=== PATIENT | female | born 1945 | race Caucasian/White ===

== ENCOUNTER 2017-09-10 17:17 | Emergency (ER) | payer MEDICARE ==
[~2017-09-10] VITALS: Ht 152.4 cm; Wt 71.7 kg
[2017-09-10 21:24] LABS: BASOPHILS % 0.5 % (0.0-1.0); EOSINOPHILS # (AUTO) 0.1 (0.0-0.4); EOSINOPHILS % 1.4 % (0.0-6.0); HEMATOCRIT 44.1 % (34.2-44.1); HEMOGLOBIN 15.1 g/dL (12.0-16.0); LYMPHOCYTES # (AUTO) 1.2 (1.0-3.2); LYMPHOCYTES % 19.5 % (18.0-39.1); MEAN CORPUSCULAR HEMOGLOBIN 31.5 pg (28-32); MEAN CORPUSCULAR HGB CONC 34.2 g/dL (31-35); MEAN CORPUSCULAR VOLUME 92.1 fL (81-99); MONOCYTES # (AUTO) 0.6 (0.2-0.8); MONOCYTES % 9.9 % (4.4-11.3); NEUTROPHILS # (AUTO) 4.4 (2.1-6.9); NEUTROPHILS % 68.5 % (38.7-80.0); PLATELET COUNT 201 x10e3/uL (140-360); RED BLOOD COUNT 4.79 x10e6/uL (3.6-5.1); RED CELL DISTRIBUTION WIDTH 12.7 % (11.7-14.4)
[2017-09-10 21:29] LABS: INR 1.05; PARTIAL THROMBOPLASTIN TIME 27.5 seconds (23.8-35.5); PROTHROMBIN TIME 12.9 seconds (11.9-14.5)
[2017-09-10] MEDS ORDERED: ASPIRIN 81 MG CHEW TAB PO ONE (21:30)
[2017-09-10 21:39] LABS: ALANINE AMINOTRANSFERASE 15 IU/L (0-55); ALBUMIN 4.3 g/dL (3.5-5.0); ALBUMIN/GLOBULIN RATIO 1.2 (0.8-2.0); ALKALINE PHOSPHATASE 102 IU/L (40-150); ANION GAP 16.4 mmol/L (8-16); BLOOD UREA NITROGEN 16 mg/dL (7-26); BUN/CREATININE RATIO 19 (6-25); CALCIUM 9.2 mg/dL (8.4-10.2); CARBON DIOXIDE 21 mmol/L (22-29); CHLORIDE 108 mmol/L (98-107); CREATINE KINASE 124 IU/L (29-168); CREATININE, SERUM 0.84 mg/dL (0.57-1.11); EST GLOMERULAR FILTRATION RATE > 60 ML/MIN (60-); GLUCOSE 168 mg/dL (74-118); POTASSIUM 3.4 mmol/L (3.5-5.1); SODIUM 142 mmol/L (136-145)
[2017-09-10 21:44] LABS: BILIRUBIN,URINE NEGATIVE (NEGATIVE); CLARITY,URINE CLOUDY (CLEAR); COLOR,URINE YELLOW (YELLOW); KETONES,URINE NEGATIVE (NEGATIVE); LEUKOCYTE ESTERASE ,URINE 2+ (NEGATIVE); NITRITE,URINE NEGATIVE (NEGATIVE); PROTEIN,URINE DIPSTICK NEGATIVE (NEGATIVE); URINE UROBILINOGEN 0.2 mg/dL (0.2 - 1)
[2017-09-10 21:59] LABS: EPITHELIAL CELLS,URINE FEW /LPF; TRANSITIONAL EPI CELLS,URINE FEW
--- NOTE | 2017-09-10 22:00 | Diagnostic Imaging Report ---
EXAMINATION: CHEST SINGLE (NOT PORTABLE) INDICATION: Chest pain COMPARISON: None FINDINGS: TUBES and LINES: None. LUNGS: Lungs are well inflated. Lungs are clear. There is no evidence of pneumonia or pulmonary edema. PLEURA: No pleural effusion or pneumothorax. HEART AND MEDIASTINUM: The cardiomediastinal silhouette is unremarkable. There are atherosclerotic calcifications within the aorta. BONES AND SOFT TISSUES: No acute osseous lesion. Soft tissues are unremarkable. UPPER ABDOMEN: No free air under the diaphragm. IMPRESSION: No acute thoracic abnormality. Signed by: Dr. Arley Palmer M.D. on 09/10/2017 9:57 PM
[2017-09-10 22:01] LABS: RENAL EPITHELIAL CELLS,URINE FEW
[2017-09-10] MEDS ORDERED: NIFEDIPINE 10 MG CAP PO STA (22:28)
[2017-09-10] MEDS ORDERED: NIFEDIPINE 10 MG CAP ONE (22:34)
[2017-09-10] MEDS ORDERED: CEFTRIAXONE SOD 1 GM VIAL IV STA (23:15)
[2017-09-10] MEDS ORDERED: POTASSIUM CHLORIDE 20 MEQ TAB CR PO STA (23:15)
--- NOTE | 2017-09-10 23:57 | Diagnostic Imaging Report ---
EXAMINATION: Head CT without contrast. HISTORY:Numbness and tingling in right side of face and bilateral arms. COMPARISON:None. TECHNIQUE: Multidetector axial images were obtained from the foramen magnum to the vertex without contrast. The images were reconstructed using brain and bone algorithms. Thin section brain images were reformatted into coronal and sagittal planes. Intravenous contrast: None IMAGE QUALITY: Acceptable. FINDINGS: Skull/scalp: No abnormality. Parenchyma: Nonspecific bilateral frontoparietal patchy white matter hypodensity are likely related to small vessel ischemic changes. No acute hemorrhage, mass or acute major vascular territorial infarct. Arteries: No density suggestive of thrombosis. Dural sinuses: No abnormal density suggestive of thrombosis. Ventricles: No hydrocephalus or displacement. Extra-axial spaces: No abnormal density. Brain volume: Normal for age. Craniocervical junction: No mass, Chiari malformation, or basilar invagination. Sella: No mass. Paranasal/mastoid sinuses: Imaged portions unremarkable. IMPRESSION: No acute intracranial abnormality. Mild supratentorial white matter microvascular ischemic changes. Signed by: Dr. Mariam Linares M.D. on 09/10/2017 11:54 PM
[2017-09-11 01:07] VITALS: BP 152/82
== END 2017-09-11 01:14 | disposition home or self-care (01) ==
LOC: ER 17:17
DX: R20.2 Paresthesia of skin (principal); N30.91 Cystitis, unspecified with hematuria; I10 Essential (primary) hypertension; B19.20 Unspecified viral hepatitis C without hepatic coma
CPT/HCPCS: 36415; 70450; 71045; 80053; 81001; 82550; 82553; 83880; 84484; 85025; 85610; 85730; 87086; 93005; 96374; 99284; J0696

== ENCOUNTER 2019-01-23 14:46 | Emergency (ER) | payer MEDICARE, OTHER ==
[~2019-01-23] VITALS: Ht 152.4 cm; Wt 71.7 kg
--- OUTSIDE RECORDS SUMMARY | 2019-01-23 14:49 | XMS REPORT ---
Author [facility] Address Unknown Phone Unavailable Care Team Providers Care Strip Tank Tender Name Role Phone Rosalba SOOD Unavailable Unavailable Problems This patient has no known problems. Allergies, Adverse Reactions, Alerts This patient has no known allergies or adverse reactions. Medications This patient has no known medications. Results Test Description Test Time Test Comments Text Results Atomic Results Result Comments CT BRAIN WO [place] [address] Patient Name: KIM LUEVANO MR #: [id number] : 1945 Age/Sex: 71/F Req #: [id number] Adm Physician: Ordered by: DOROTA SOOD MD Report #: [id number] Location: ER Room/Bed: Procedure: [id number] CT/CT BRAIN WO Exam Date: 09/10/17 Exam Time: 2327 REPORT STATUS: Signed EXAMINATION: Head CT without contrast. HISTORY:Numbness and tingling in right side of face and bilateral arms. COMPARISON:None. TECHNIQUE: Multidetector axial images were obtained from the foramen magnum to the vertex without contrast. The images were reconstructed using brain and bone algorithms. Thin section brain images were reformatted into coronal and sagittal planes. Intravenous contrast: None IMAGE QUALITY: Acceptable. FINDINGS: Skull/scalp: No abnormality. Parenchyma: Nonspecific bilateral frontoparietal patchy white matter hypodensity are likely related to small vessel ischemic changes. No acute hemorrhage, mass or acute major vascular territorial infarct. Arteries: No density suggestive of thrombosis. Dural sinuses: No abnormal density suggestive of thrombosis. Ventricles: No hydrocephalus or displacement. Extra- axial spaces: No abnormal density. Brain volume: Normal for age. Craniocervical junction: No mass, Chiari malformation, or basilar invagination. Sella: No mass. Paranasal/mastoid sinuses: Imaged portions unremarkable. IMPRESSION: No acute intracranial abnormality. Mild supratentorial white matter microvascular ischemic changes. Signed by: Dr. Mariam Linares M.D. on 09/10/2017 11:54 PM Dictated By: MRAIAM LINARES MD 53 Transcribed By: LEILANI on 09/10/172353 COPY TO: DOROTA SOOD MD CHEST SINGLE (NOT PORTABLE) [place] [address] Patient Name: KIM LUEVANO MR #: [id number] : 1945 Age/Sex: 71/F Req #: [id number] Adm Physician: Ordered by: DOROTA SOOD MD Report #: [id number] Location: ER Room/Bed: Procedure: [id number] DX/CHEST SINGLE (NOT PORTABLE) Exam Date: 09/10/17 Exam Time: 2119 REPORT STATUS: Signed EXAMINATION: CHEST SINGLE (NOT PORTABLE) INDICATION: Chest pain COMPARISON: None FINDINGS: TUBES and LINES: None. LUNGS: Lungs are well inflated. Lungs are clear. There is no evidence of pneumonia or pulmonary edema. PLEURA: No pleural effusion or pneumothorax. HEART AND MEDIASTINUM: The cardiomediastinal silhouette is unremarkable. There are atherosclerotic calcifications within the aorta. BONES AND SOFT TISSUES: No acute osseous lesion. Soft tissues are unremarkable. UPPER ABDOMEN: No free air under the diaphragm. IMPRESSION: No acute thoracic abnormality. Signed by: Dr. Arley Palmer M.D. on 09/10/2017 9:57 PM Dictated By: ARLEY BRADFORD MD 56 Transcribed By: LEILANI on 09/10/172156 COPY TO: DOROTA SOOD MD
[2019-01-23] MEDS ORDERED: CLINDAMYCIN PHOS 900MG/ 50ML 50 ML IV ONE (16:30)
== END 2019-01-23 17:56 | disposition home or self-care (01) ==
LOC: ER 14:46
DX: L03.114 Cellulitis of left upper limb (principal); M70.22 Olecranon bursitis, left elbow; I10 Essential (primary) hypertension; Z86.73 Personal history of transient ischemic attack (TIA), and cerebral infarction without residual deficits
CPT/HCPCS: 87071; 87186; 87205; 99283

== ENCOUNTER 2019-12-29 14:04 | Inpatient (IN) | payer MEDICARE ==
[~2019-12-29] VITALS: Ht 152.4 cm; Wt 62.1 kg
--- OUTSIDE RECORDS SUMMARY | 2019-12-29 14:06 | XMS REPORT | Continuity of Care Document ---
Author Author [facility] Organization [facility] Address [address] [place] [address] Phone Unavailable Care Team Providers Care Bilingual Case Manager Name Role Phone FILEMON CHEN MD PCP Rosalba SOOD Attphys Unavailable Payers Payer Name Policy Type Policy Number Effective Date Expiration Date Shantel Philippe o [id number] [facility] [employer] Medicare Advantage [id number] [facility] Problems This patient has no known problems. Allergies, Adverse Reactions, Alerts Allergy Name Allergy Type Status Severity Reaction(s) Onset Date Inacti ve Date Treating Clinician Comments Source Diphenhydramine Allergy to Substance Active 2017-09-10 00:0 0:00 [facility] Latex Allergy to Substance Active 2017-09-10 00:00:00 [facility] Medications This patient has no known medications. Procedures This patient has no known procedures. Encounters Start Date/Time End Date/Time [facility] ID Source 2019-01-23 14:46:00 2019-01-23 17:56:00 Departed Emergency Room [facility] [id number] [facility] 2017-09-10 17:17:00 2017-09-11 01:14:00 Departed Emergency Room ER DOROTA SOOD [facility] [id number] [facility] Results Test Description Test Time Test Comments Results Result Comments Source Urine WBC 2017-09-10 22:03:00 Test Item Urine WBC (test code = 5821-4) 11-20 0-5 H [facility] [id number] 22:03:00* Test Item Value Reference Range Interpretation Comments Urine RBC (test code = 23462-4) 6-10 0-5 H [facility] Iwhjgmpv7059-01-23 22:03:00* Test Item Value Reference Range Interpretation Comments Urine Bacteria (test code = 38569-0) NONE NONE [facility] Epithelial [id number] 22:03:00 * Test Item Value Reference Range Interpretation Comments Urine Epithelial Cells (test code = 44513-4) FEW NONE [facility] Transitional Epithelial Cells 2017-09-10 22:03:00* Test Item Value Reference Range Interpretation Comments Urine Transitional Epithelial Cells (test code = 8249-5) FEW NONE H [facility] Renal Epithelial [id number] 22:03:00* Test Item Value Reference Range Interpretation Comments Urine Renal Epithelial Cells (test code = 85870-3) FEW NON E H [facility] CenterB-Type Natriuretic Yzmzase3489-00-25 21:47:00* Test Item Value Reference Range Interpretation Comments B-Type Natriuretic Peptide (test code = 25278-2) 11.6 0-100 [facility] Kinase [id number] 21:47:00* Test Item Value Reference Range Interpretation Comments Creatine Kinase MB (test code = 53564-4) 2.00 0-5.0 [facility]Troponin [id number] 21:47:00* Test Item Value Reference Range Interpretation Comments Troponin I (test code = VYH3141) -0.001 0-0.300 [facility] Csufr5211-82-34 21:45:00* Test Item Value Reference Range Interpretation Comments Urine Color (test code = 5778-6) YELLOW YELLOW [facility] Gkfepke2272-10-71 21:45:00* Test Item Value Reference Range Interpretation Comments Urine Clarity (test code = 17799-7) CLOUDY CLEAR H [facility] Center[facility] Specific Nsnjeqj7436-64-17 21:45:00 * Test Item Value Reference Range Interpretation Comments Urine Specific Hope (test code = 5811-5) 1.025 1.010-1.02 5 [facility] [id number] 21:45:00* Test Item Value Reference Range Interpretation Comments Urine pH (test code = 93107-2) 5 5-7 [facility] Leukocyte Xcippqmc2677-16-78 21:45:00* Test Item Value Reference Range Interpretation Comments Urine Leukocyte Esterase (test code = 5799-2) 2+ NEGATIVE H [facility] Center[facility] Xndnmph9717-46-29 21:45:00* Test Item Value Reference Range Interpretation Comments Urine Nitrite (test code = 66451-6) NEGATIVE NEGATIVE [facility] Pxszscu5572-28-39 21:45:00* Test Item Value Reference Range Interpretation Comments Urine Protein (test code = 5804-0) NEGATIVE NEGATIVE [facility] Glucose (UA)2017-09-10 21:45:00* Test Item Value Reference Range Interpretation Comments Urine Glucose (UA) (test code = 2349-9) TRACE NEGATIVE H [facility] Ogbmast0069-73-68 21:45:00* Test Item Value Reference Range Interpretation Comments Urine Ketones (test code = 36539-6) NEGATIVE NEGATIVE [facility] Quamqdienwlu9190-73-75 21:45:00* Test Item Value Reference Range Interpretation Comments Urine Urobilinogen (test code = 64556-1) 0.2 0.2-1 [facility] Qeomrzqcz7367-50-72 21:45:00* Test Item Value Reference Range Interpretation Comments Urine Bilirubin (test code = 1978-6) NEGATIVE NEGATIVE [facility] Xqnmv3503-64-72 21:45:00* Test Item Value Reference Range Interpretation Comments Urine Blood (test code = 15360-2) TRACE NEGATIVE [facility] Lssve8055-29-67 21:40:00* Test Item Value Reference Range Interpretation Comments Sodium Level (test code = 2951-2) 142 136-145 [facility] CenterPotassium Vajoc1076-52-38 21:40:00* Test Item Value Reference Range Interpretation Comments Potassium Level (test code = 2823-3) 3.4 3.5-5.1 L [facility] CenterChloride Xphew0890-51-53 21:40:00* Test Item Value Reference Range Interpretation Comments Chloride Level (test code = 2075-0) 108 98-107 H [facility] CenterCarbon Dioxide Pozxh3378-94-80 21:40:00* Test Item Value Reference Range Interpretation Comments Carbon Dioxide Level (test code = 2028-9) 21 22-29 L [facility] CenterAnion Yfk6825-91-63 21:40:00* Test Item Value Reference Range Interpretation Comments Anion Gap (test code = 71441-3) 16.4 8-16 H [facility] CenterBlood Urea Upsdgscd7016-42-63 21:40:00* Test Item Value Reference Range Interpretation Comments Blood Urea Nitrogen (test code = 3094-0) 16 7-26 [facility] CenterCreatinine2018-02-21 21:40:00* Test Item Value Reference Range Interpretation Comments Creatinine (test code = 2160-0) 0.84 0.57-1.11 [facility] CenterBUN/Creatinine Fiygw4851-07-09 21:40:00* Test Item Value Reference Range Interpretation Comments BUN/Creatinine Ratio (test code = 3097-3) 19 6-25 [facility] CenterEstimat Glomerular Filtration Rate 2017-09-10 21:40:00* Test Item Value Reference Range Interpretation Comments Estimat Glomerular Filtration Rate (test code = 27869-7) 60- >60 Ranges were taken from the National Kidney Disease Education Program and the [facility] Foundation literature.Reference ranges:60 or greater: Kmlegc08-51 ( for 3 consecutive months): Chronic kidney disease 15 or less: Kidney failureParis [facility] Medical CenterGlucose Lgqfm8062-95-13 21:40:00* Test Item Value Reference Range Interpretation Comments Glucose Level (test code = LIK5167) 168 74-118 H [facility] CenterCalcium Mqqud7408-21-41 21:40:00* Test Item Value Reference Range Interpretation Comments Calcium Level (test code = 55501-5) 9.2 8.4-10.2 [facility] CenterTotal Dxjfvjxzf7914-93-97 21:40:00* Test Item Value Reference Range Interpretation Comments Total Bilirubin (test code = 1975-2) 0.4 0.2-1.2 [facility] CenterAspartate Amino Transf (AST/SGOT) 2017-09-10 21:40:00* Test Item Value Reference Range Interpretation Comments Aspartate Amino Transf (AST/SGOT) (test code = Aspartate Amino Transf (AST/SGOT)) 23 5-34 [facility] CenterAlanine Aminotransferase (ALT/SGPT) 2017-09-10 21:40:00* Test Item Value Reference Range Interpretation Comments Alanine Aminotransferase (ALT/SGPT) (test code = 1742-6) 15 0-55 [facility] CenterTotal Qxmigzo1031-30-78 21:40:00* Test Item Value Reference Range Interpretation Comments Total Protein (test code = 2885-2) 8.0 6.5-8.1 [facility] CenterAlbumin2018-02-21 21:40:00* Test Item Value Reference Range Interpretation Comments Albumin (test code = 1751-7) 4.3 3.5-5.0 [facility] CenterGlobulin2018-02-21 21:40:00* Test Item Value Reference Range Interpretation Comments Globulin (test code = 82041-9) 3.7 2.3-3.5 H [facility] CenterAlbumin/Globulin Khnmv1251-33-22 21:40:00 * Test Item Value Reference Range Interpretation Comments Albumin/Globulin Ratio (test code = 1759-0) 1.2 0.8-2.0 [facility] CenterAlkaline Qhfzvyjzymj1588-03-16 21:40:00* Test Item Value Reference Range Interpretation Comments Alkaline Phosphatase (test code = 6768-6) 102 40-150 [facility] CenterCreatine Yhgsud3266-42-87 21:40:00* Test Item Value Reference Range Interpretation Comments Creatine Kinase (test code = 2157-6) 124 29-168 [facility] CenterProthrombin Yqca0614-60-50 21:35:00* Test Item Value Reference Range Interpretation Comments Prothrombin Time (test code = 5902-2) 12.9 11.9-14.5 [facility] CenterProthromb Time International Ratio 2017-09-10 21:35:00* Test Item Value Reference Range Interpretation Comments Prothromb Time International Ratio (test code = 6301-6) 1.05 Oral Anticoagulant Therapy INR Values:1. Low Intensity Therapy 1.5 - 2.02 . Moderate Intensity Therapy 2.0 - 3.03. High Intensity Therapy(1) 2.5 - 3. 54. High Intensity Therapy(2) 3.0 - 4.05. Panic Value INR > 5.0 [facility] CenterActivated Partial Thromboplast Time 2017-09-10 21:35:00* Test Item Value Reference Range Interpretation Comments Activated Partial Thromboplast Time (test code = 46763-2) 27.5 23.8-35.5 [facility] CenterWhite Blood Dfjpk0642-29-33 21:25:00* Test Item Value Reference Range Interpretation Comments White Blood Count (test code = 6690-2) 6.35 4.8-10.8 [facility] CenterRed Blood Abibs9452-18-84 21:25:00* Test Item Value Reference Range Interpretation Comments Red Blood Count (test code = 789-8) 4.79 3.6-5.1 [facility] CenterHemoglobin2018-02-21 21:25:00* Test Item Value Reference Range Interpretation Comments Hemoglobin (test code = 85701-1) 15.1 12.0-16.0 [facility] CenterHematocrit2018-02-21 21:25:00* Test Item Value Reference Range Interpretation Comments Hematocrit (test code = 4544-3) 44.1 34.2-44.1 [facility] CenterMean Corpuscular Ztkdqx4438-03-45 21:25:00* Test Item Value Reference Range Interpretation Comments Mean Corpuscular Volume (test code = 787-2) 92.1 81-99 [facility] CenterMean Corpuscular Cgiyfjmjtf4743-58-37 21:25:00* Test Item Value Reference Range Interpretation Comments Mean Corpuscular Hemoglobin (test code = 785-6) 31.5 28-32 [facility] CenterMean Corpuscular Hemoglobin Concent 2017-09-10 21:25:00* Test Item Value Reference Range Interpretation Comments Mean Corpuscular Hemoglobin Concent (test code = 786-4) 34.2 31-35 [facility] CenterRed Cell Distribution Mclmn6343-29-30 21:25:00* Test Item Value Reference Range Interpretation Comments Red Cell Distribution Width (test code = 65228-3) 12.7 11.7 -14.4 [facility] CenterPlatelet Tnttm1990-22-35 21:25:00* Test Item Value Reference Range Interpretation Comments Platelet Count (test code = 777-3) 201 140-360 [facility] CenterNeutrophils (%) (Auto)2017-09-10 21:25:00 * Test Item Value Reference Range Interpretation Comments Neutrophils (%) (Auto) (test code = 53104-1) 68.5 38.7-80.0 [facility] CenterLymphocytes (%) (Auto)2017-09-10 21:25:00 * Test Item Value Reference Range Interpretation Comments Lymphocytes (%) (Auto) (test code = 736-9) 19.5 18.0-39.1 [facility] CenterMonocytes (%) (Auto)2017-09-10 21:25:00* Test Item Value Reference Range Interpretation Comments Monocytes (%) (Auto) (test code = 5905-5) 9.9 4.4-11.3 [facility] CenterEosinophils (%) (Auto)2017-09-10 21:25:00 * Test Item Value Reference Range Interpretation Comments Eosinophils (%) (Auto) (test code = 713-8) 1.4 0.0-6.0 [facility] CenterBasophils (%) (Auto)2017-09-10 21:25:00* Test Item Value Reference Range Interpretation Comments Basophils (%) (Auto) (test code = 706-2) 0.5 0.0-1.0 [facility] CenterIM GRANULOCYTES %2017-09-10 21:25:00* Test Item Value Reference Range Interpretation Comments IM GRANULOCYTES % (test code = IM GRANULOCYTES %) 0.2 0.0- 1.0 [facility] CenterNeutrophils # (Auto)2017-09-10 21:25:00* Test Item Value Reference Range Interpretation Comments Neutrophils # (Auto) (test code = 751-8) 4.4 2.1-6.9 [facility] CenterLymphocytes # (Auto)2017-09-10 21:25:00* Test Item Value Reference Range Interpretation Comments Lymphocytes # (Auto) (test code = 53483-3) 1.2 1.0-3.2 [facility] CenterMonocytes # (Auto)2017-09-10 21:25:00* Test Item Value Reference Range Interpretation Comments Monocytes # (Auto) (test code = 742-7) 0.6 0.2-0.8 [facility] CenterEosinophils # (Auto)2017-09-10 21:25:00* Test Item Value Reference Range Interpretation Comments Eosinophils # (Auto) (test code = 711-2) 0.1 0.0-0.4 [facility] CenterBasophils # (Auto)2017-09-10 21:25:00* Test Item Value Reference Range Interpretation Comments Basophils # (Auto) (test code = 704-7) 0.0 0.0-0.1 [facility] CenterAbsolute Immature Granulocyte (auto 2017-09-10 21:25:00* Test Item Value Reference Range Interpretation Comments Absolute Immature Granulocyte (auto (ramses t code = Absolute Immature Granulocyte (auto) 0.01 0-0.1 [facility] CenterCT BRAIN WO [place] [address] Patient Name: KIM LUEVANO MR #: [id number] : 1945 Age/Sex: 71/F Req #: [id number] Adm Physician: Ordered by: DOROTA SOOD MD Report #: [id number] Location: ER Room/Bed: Procedure: [id number] CT/CT BRAIN WO Exam Date: 08/22 08/07 Exam Time: 8 REPORT STATUS: Signed E XAMINATION: Head CT without contrast. HISTORY:Numbness and tingling in right side of face and bilateral arms. COMPARISON:None. TECHNIQUE: Multi detector axial images were obtained from the foramen magnum to the vertex with out contrast. The images were reconstructed using brain and bone algorithms. Thin section brain images were reformatted into coronal and sagittal planes. Intravenous contrast: None IMAGE QUALITY: Acceptable. FINDINGS: Skull/scalp: No abnormality. Parenchyma: Nonspecific bilateral fronto parietal patchy white matter hypodensity are likely related to small vessel is chemic changes. No acute hemorrhage, mass or acute major vascular territorial infarct. Arteries: No density suggestive of thrombosis. Dural sin uses: No abnormal density suggestive of thrombosis. Ventricles: No hydroc ephalus or displacement. Extra-axial spaces: No abnormal density. Brain volume: Normal for age. Craniocervical junction: No mass, Chiari mal formation, or basilar invagination. Sella: No mass. Paranasal/mas toid sinuses: Imaged portions unremarkable. IMPRESSION: No acute intracra nial abnormality. Mild supratentorial white matter microvascular ischemic c hanges. Signed by: Dr. Mariam Linares M.D. on 09/10/2017 11:54 PM D ictated By: MARIAM LINARES MD 53 Transcribed By: LEILANI on 09/10/172353 COPY TO: Yann SOOD MD CHEST SINGLE (NOT PORTABLE) [place] [address] Patient Name: KIM LUEVANO MR #: [id number] : 1945 Age/Sex: 71/F Req #: [id number] Adm Physician: Ordered by: DOROTA SOOD MD Report #: [id number] Location: ER Room/Bed: Procedure: [id number] DX/CHEST SINGLE (NOT PORTABLE) Exam Date: 09/10/17 Exam Time: 2119 STA TUS: Signed EXAMINATION: CHEST SINGLE (NOT PORTABLE) INDICATION: Chest pain COMPARISON: None FINDINGS: TUBES and LINES: None. LUNGS: Lungs are well inflated. Lungs are clear. There is no e vidence of pneumonia or pulmonary edema. PLEURA: No pleural effusion or pneumothorax. HEART AND MEDIASTINUM: The cardiomediastinal silhouette is u nremarkable. There are atherosclerotic calcifications within the aorta. B ONES AND SOFT TISSUES: No acute osseous lesion. Soft tissues are unremarkabl e. UPPER ABDOMEN: No free air under the diaphragm. IMPRESSION: No acute thoracic abnormality. Signed by: Dr. Arley Palmer M.D. on 2017 9:57 PM Dictated By: ARLEY BRADFORD MD 56 Transcribed By: LEILANI on 2156 COPY TO: DOROTA SOOD MD
[2019-12-29] MEDS ORDERED: SODIUM CHLORIDE 0.9% 1000ML 1,000 ML IV STA ×2 (14:28→17:41)
[2019-12-29 14:54] LABS: BASOPHILS % 0.1 % (0.0-1.0); HEMATOCRIT 43.1 % (34.2-44.1); HEMOGLOBIN 14.8 g/dL (12.0-16.0); LYMPHOCYTES # (AUTO) 0.4 (1.0-3.2); LYMPHOCYTES % 5.5 % (18.0-39.1); MEAN CORPUSCULAR HEMOGLOBIN 30.5 pg (28-32); MEAN CORPUSCULAR HGB CONC 34.3 g/dL (31-35); MEAN CORPUSCULAR VOLUME 88.7 fL (81-99); MONOCYTES # (AUTO) 0.4 (0.2-0.8); MONOCYTES % 5.3 % (4.4-11.3); NEUTROPHILS # (AUTO) 7.1 (2.1-6.9); NEUTROPHILS % 88.7 % (38.7-80.0); PLATELET COUNT 156 x10e3/uL (140-360); RED BLOOD COUNT 4.86 x10e6/uL (3.6-5.1); RED CELL DISTRIBUTION WIDTH 12.1 % (11.7-14.4)
[2019-12-29 15:03] LABS: INR 0.92; PROTHROMBIN TIME 12.9 seconds (11.9-14.5)
[2019-12-29 15:12] LABS: ALANINE AMINOTRANSFERASE 31 IU/L (0-55); ALBUMIN 3.6 g/dL (3.5-5.0); ALBUMIN/GLOBULIN RATIO 0.8 (0.8-2.0); ALKALINE PHOSPHATASE 62 IU/L (40-150); ANION GAP 16.5 mmol/L (8-16); BLOOD UREA NITROGEN 18 mg/dL (7-26); BUN/CREATININE RATIO 22 (6-25); CALCIUM 10.2 mg/dL (8.4-10.2); CARBON DIOXIDE 21 mmol/L (22-29); CHLORIDE 102 mmol/L (98-107); CREATINE KINASE 232 IU/L (29-168); CREATININE, SERUM 0.83 mg/dL (0.57-1.11); EST GLOMERULAR FILTRATION RATE > 60 ML/MIN (60-); GLUCOSE 116 mg/dL (74-118); MAGNESIUM 1.9 MG/DL (1.3-2.1); POTASSIUM 3.5 mmol/L (3.5-5.1); SODIUM 136 mmol/L (136-145)
[2019-12-29 15:37] LABS: CLARITY,URINE SL CLOUDY (CLEAR); COLOR,URINE YELLOW (YELLOW); LEUKOCYTE ESTERASE ,URINE MODERATE (NEGATIVE); NITRITE,URINE POSITIVE (NEGATIVE); PROTEIN,URINE DIPSTICK 1+ (NEGATIVE)
[2019-12-29 15:38] LABS: BILIRUBIN,URINE NEGATIVE (NEGATIVE); KETONES,URINE TRACE (NEGATIVE); URINE UROBILINOGEN 0.2 mg/dL (0.2 - 1)
[2019-12-29 15:43] LABS: B-TYPE NATRIURETIC PEPTIDE2 24.5 pg/mL (0-100)
[2019-12-29 15:45] LABS: BACTERIA,URINE MANY /HPF; WBC,URINE (MAN) >50 /HPF (0-5)
[2019-12-29] MEDS ORDERED: CEFTRIAXONE SOD 1 GM/NS 50 ML 50 ML IV ONE (16:15)
--- NOTE | 2019-12-29 16:19 | Emergency Department Note ---
History of Present Illnes History of Present Illness Chief Complaint: General Medicine Complaints History of Present Illness This is a 74 year old female sent from pcp office c/o feverright side back pain cough hypoxia diarrhea for several days Chief Complaint Comment SENT OVER FROM DR CHEN'S OFFICE FOR EVAL OF FEVER, RIGHT SIDED BACK PAIN, COUGH, HYPOXEMIA, DIARRHEA, NO PO INTAKE, SEVERE DEPRESSION Historian: Patient, Family Member Arrival Mode: Car Onset (how long ago): day(s) (several) Radiation: Reports back Severity: moderate Onset quality: gradual Duration (how long): day(s) (several days) Timing of current episode: constant Progression: worsening Context: Denies recent illness, Denies recent surgery, Denies recent immobilization, Denies recent travel, Denies trauma/injury, Denies new medications, Denies hx of DVT/PE, Denies non-compliance w/ medications, Denies other Relieving factors: none Exacerbating factors: none Associated symptoms: Reports cough, Reports fever/chills, Reports malaise, Reports weakness, Reports other (diarhea) Treatments prior to arrival: none Past Medical/Family History Physician Review I have reviewed the patient's past medical and family history. Any updates have been documented here. Past Medical History Recent Fever: No Clinical Suspicion of Infectio: Yes New/Unexplained Change in Ment: No Past Medical History: Hypertension, CVA, Depression, Hyperlipedemia Other Medical History: prediabetes fibroadenoma of rt breast OA Cholesterol cataract Other Surgery: Rt breast LUMP Social History Smoking Cessation: Never Smoker Counseling Performed: No Alcohol Use: None Any Illegal Drug Use: No TB Exposure/Symptoms: No Physically hurt or threatened: No Other Last Tetanus: Unknown Any Pre-Existing Lines (PICC,: No Is patient up to date on immun: Yes Last Flu: 2019 Last Pneumovax: 2019 Review of Systems Review of Systems Constitutional: Reports chills, Reports fever, Reports malaise, Reports weakness, Reports other (poor appitite) EENTM: Reports no symptoms Cardiovascular: Reports no symptoms Respiratory: Reports cough Gastrointestinal: Reports diarrhea Genitourinary: Reports no symptoms Musculoskeletal: Reports back pain (left side back pain ) Integumentary: Reports no symptoms Neurological: Reports no symptoms Psychological: Reports no symptoms Endocrine: Reports no symptoms Hematological/Lymphatic: Reports no symptoms Review of other systems All other systems reviewed and negative. Physical Exam Related Data Allergies: Coded Allergies: diphenhydramine (Verified Allergy, Unknown, 09/10/17) latex (Verified Allergy, Unknown, 09/10/17) Triage Vital Signs Vital Signs Date Time Temp Pulse Resp B/P (MAP) Pulse Ox O2 Delivery O2 Flow Rate FiO2 12/29/19 14:21 97.5 104 22 121/61 92 Vital signs reviewed: Yes Physical Exam CONSTITUTIONAL Constitutional: Reports ill appearing, Reports other (poor appitite) HENT HENT: Reports normocephalic, Reports atraumatic, Reports oropharynx clear/moist, Reports nose normal HENT L/R: Reports left ext ear normal, Reports right ext ear normal EYES Eyes: Reports PERRL, Reports conjunctivae normal NECK Neck: Reports ROM normal PULMONARY Pulmonary: Reports breath sounds normal (diminshed lower lobes ); Denies rales, Denies chest tenderness CARDIOVASCULAR Cardiovascular: Reports tachycardia (104) GASTROINTESTINAL Abdominal: Reports other (c/o diarrhea ) GENITOURINARY Genitourinary: Reports exam deferred SKIN Skin: Reports warm, Reports dry MUSCULOSKELETAL Musculoskeletal: Reports tenderness (left side back ) NEUROLOGICAL Neurological: Reports alert, Reports oriented x 3, Reports no gross motor or sensory deficits PSYCHOLOGICAL Psychological: Reports mood/affect normal, Reports judgement normal Results Laboratory Result Diagram: 12/29/19 1435 12/29/19 1435 Laboratory Laboratory Tests Test 12/29/19 15:16 12/29/19 14:35 White Blood Count 7.97 x10e3/uL (4.8-10.8) Red Blood Count 4.86 x10e6/uL (3.6-5.1) Hemoglobin 14.8 g/dL (12.0-16.0) Hematocrit 43.1 % (34.2-44.1) Mean Corpuscular Volume 88.7 fL (81-99) Mean Corpuscular Hemoglobin 30.5 pg (28-32) Mean Corpuscular Hemoglobin Concent 34.3 g/dL (31-35) Red Cell Distribution Width 12.1 % (11.7-14.4) Platelet Count 156 x10e3/uL (140-360) Neutrophils (%) (Auto) 88.7 % (38.7-80.0) Lymphocytes (%) (Auto) 5.5 % (18.0-39.1) Monocytes (%) (Auto) 5.3 % (4.4-11.3) Eosinophils (%) (Auto) 0.0 % (0.0-6.0) Basophils (%) (Auto) 0.1 % (0.0-1.0) Neutrophils # (Auto) 7.1 (2.1-6.9) Lymphocytes # (Auto) 0.4 (1.0-3.2) Monocytes # (Auto) 0.4 (0.2-0.8) Eosinophils # (Auto) 0.0 (0.0-0.4) Basophils # (Auto) 0.0 (0.0-0.1) Absolute Immature Granulocyte (auto 0.03 x10e3/uL (0-0.1) Prothrombin Time 12.9 seconds (11.9-14.5) Prothromb Time International Ratio 0.92 Activated Partial Thromboplast Time 30.0 seconds (23.8-35.5) Urine Color Yellow (YELLOW) Urine Clarity Sl cloudy (CLEAR) Urine pH 6 (5 - 7) Urine Specific Dawson 1.020 (1.010-1.025) Urine Protein 1+ (NEGATIVE) Urine Glucose (UA) Negative (NEGATIVE) Urine Ketones Trace (NEGATIVE) Urine Blood Small (NEGATIVE) Urine Nitrite Positive (NEGATIVE) Urine Bilirubin Negative (NEGATIVE) Urine Urobilinogen 0.2 mg/dL (0.2 - 1) Urine Leukocyte Esterase Moderate (NEGATIVE) Urine RBC 6-10 /HPF (0-5) Urine WBC >50 /HPF (0-5) Urine Epithelial Cells None /LPF (NONE) Urine Bacteria Many /HPF (NONE) Sodium Level 136 mmol/L (136-145) Potassium Level 3.5 mmol/L (3.5-5.1) Chloride Level 102 mmol/L (98-107) Carbon Dioxide Level 21 mmol/L (22-29) Anion Gap 16.5 mmol/L (8-16) Blood Urea Nitrogen 18 mg/dL (7-26) Creatinine 0.83 mg/dL (0.57-1.11) Estimat Glomerular Filtration Rate > 60 ML/MIN (60-) BUN/Creatinine Ratio 22 (6-25) Glucose Level 116 mg/dL (74-118) Lactic Acid Level 1.5 mmol/L (0.5-2.0) Calcium Level 10.2 mg/dL (8.4-10.2) Magnesium Level 1.9 MG/DL (1.3-2.1) Total Bilirubin 0.5 mg/dL (0.2-1.2) Aspartate Amino Transf (AST/SGOT) 58 IU/L (5-34) Alanine Aminotransferase (ALT/SGPT) 31 IU/L (0-55) Alkaline Phosphatase 62 IU/L (40-150) Creatine Kinase 232 IU/L (29-168) Creatine Kinase MB 2.30 ng/mL (0-5.0) Troponin I 0.024 ng/mL (0-0.300) B-Type Natriuretic Peptide 24.5 pg/mL (0-100) Total Protein 8.0 g/dL (6.5-8.1) Albumin 3.6 g/dL (3.5-5.0) Globulin 4.4 g/dL (2.3-3.5) Albumin/Globulin Ratio 0.8 (0.8-2.0) Laboratory Tests Test 12/29/19 15:16 12/29/19 14:35 White Blood Count 7.97 x10e3/uL (4.8-10.8) Red Blood Count 4.86 x10e6/uL (3.6-5.1) Hemoglobin 14.8 g/dL (12.0-16.0) Hematocrit 43.1 % (34.2-44.1) Mean Corpuscular Volume 88.7 fL (81-99) Mean Corpuscular Hemoglobin 30.5 pg (28-32) Mean Corpuscular Hemoglobin Concent 34.3 g/dL (31-35) Red Cell Distribution Width 12.1 % (11.7-14.4) Platelet Count 156 x10e3/uL (140-360) Neutrophils (%) (Auto) 88.7 % (38.7-80.0) Lymphocytes (%) (Auto) 5.5 % (18.0-39.1) Monocytes (%) (Auto) 5.3 % (4.4-11.3) Eosinophils (%) (Auto) 0.0 % (0.0-6.0) Basophils (%) (Auto) 0.1 % (0.0-1.0) Neutrophils # (Auto) 7.1 (2.1-6.9) Lymphocytes # (Auto) 0.4 (1.0-3.2) Monocytes # (Auto) 0.4 (0.2-0.8) Eosinophils # (Auto) 0.0 (0.0-0.4) Basophils # (Auto) 0.0 (0.0-0.1) Absolute Immature Granulocyte (auto 0.03 x10e3/uL (0-0.1) Prothrombin Time 12.9 seconds (11.9-14.5) Prothromb Time International Ratio 0.92 Activated Partial Thromboplast Time 30.0 seconds (23.8-35.5) Urine Color Yellow (YELLOW) Urine Clarity Sl cloudy (CLEAR) Urine pH 6 (5 - 7) Urine Specific Dawson 1.020 (1.010-1.025) Urine Protein 1+ (NEGATIVE) Urine Glucose (UA) Negative (NEGATIVE) Urine Ketones Trace (NEGATIVE) Urine Blood Small (NEGATIVE) Urine Nitrite Positive (NEGATIVE) Urine Bilirubin Negative (NEGATIVE) Urine Urobilinogen 0.2 mg/dL (0.2 - 1) Urine Leukocyte Esterase Moderate (NEGATIVE) Urine RBC 6-10 /HPF (0-5) Urine WBC >50 /HPF (0-5) Urine Epithelial Cells None /LPF (NONE) Urine Bacteria Many /HPF (NONE) Sodium Level 136 mmol/L (136-145) Potassium Level 3.5 mmol/L (3.5-5.1) Chloride Level 102 mmol/L (98-107) Carbon Dioxide Level 21 mmol/L (22-29) Anion Gap 16.5 mmol/L (8-16) Blood Urea Nitrogen 18 mg/dL (7-26) Creatinine 0.83 mg/dL (0.57-1.11) Estimat Glomerular Filtration Rate > 60 ML/MIN (60-) BUN/Creatinine Ratio 22 (6-25) Glucose Level 116 mg/dL (74-118) Lactic Acid Level 1.5 mmol/L (0.5-2.0) Calcium Level 10.2 mg/dL (8.4-10.2) Magnesium Level 1.9 MG/DL (1.3-2.1) Total Bilirubin 0.5 mg/dL (0.2-1.2) Aspartate Amino Transf (AST/SGOT) 58 IU/L (5-34) Alanine Aminotransferase (ALT/SGPT) 31 IU/L (0-55) Alkaline Phosphatase 62 IU/L (40-150) Creatine Kinase 232 IU/L (29-168) Creatine Kinase MB 2.30 ng/mL (0-5.0) Troponin I 0.024 ng/mL (0-0.300) B-Type Natriuretic Peptide 24.5 pg/mL (0-100) Total Protein 8.0 g/dL (6.5-8.1) Albumin 3.6 g/dL (3.5-5.0) Globulin 4.4 g/dL (2.3-3.5) Albumin/Globulin Ratio 0.8 (0.8-2.0) Laboratory Tests Test 12/29/19 15:16 12/29/19 14:35 White Blood Count 7.97 x10e3/uL (4.8-10.8) Red Blood Count 4.86 x10e6/uL (3.6-5.1) Hemoglobin 14.8 g/dL (12.0-16.0) Hematocrit 43.1 % (34.2-44.1) Mean Corpuscular Volume 88.7 fL (81-99) Mean Corpuscular Hemoglobin 30.5 pg (28-32) Mean Corpuscular Hemoglobin Concent 34.3 g/dL (31-35) Red Cell Distribution Width 12.1 % (11.7-14.4) Platelet Count 156 x10e3/uL (140-360) Neutrophils (%) (Auto) 88.7 % (38.7-80.0) Lymphocytes (%) (Auto) 5.5 % (18.0-39.1) Monocytes (%) (Auto) 5.3 % (4.4-11.3) Eosinophils (%) (Auto) 0.0 % (0.0-6.0) Basophils (%) (Auto) 0.1 % (0.0-1.0) Neutrophils # (Auto) 7.1 (2.1-6.9) Lymphocytes # (Auto) 0.4 (1.0-3.2) Monocytes # (Auto) 0.4 (0.2-0.8) Eosinophils # (Auto) 0.0 (0.0-0.4) Basophils # (Auto) 0.0 (0.0-0.1) Absolute Immature Granulocyte (auto 0.03 x10e3/uL (0-0.1) Prothrombin Time 12.9 seconds (11.9-14.5) Prothromb Time International Ratio 0.92 Activated Partial Thromboplast Time 30.0 seconds (23.8-35.5) Urine Color Yellow (YELLOW) Urine Clarity Sl cloudy (CLEAR) Urine pH 6 (5 - 7) Urine Specific Dawson 1.020 (1.010-1.025) Urine Protein 1+ (NEGATIVE) Urine Glucose (UA) Negative (NEGATIVE) Urine Ketones Trace (NEGATIVE) Urine Blood Small (NEGATIVE) Urine Nitrite Positive (NEGATIVE) Urine Bilirubin Negative (NEGATIVE) Urine Urobilinogen 0.2 mg/dL (0.2 - 1) Urine Leukocyte Esterase Moderate (NEGATIVE) Urine RBC 6-10 /HPF (0-5) Urine WBC >50 /HPF (0-5) Urine Epithelial Cells None /LPF (NONE) Urine Bacteria Many /HPF (NONE) Sodium Level 136 mmol/L (136-145) Potassium Level 3.5 mmol/L (3.5-5.1) Chloride Level 102 mmol/L (98-107) Carbon Dioxide Level 21 mmol/L (22-29) Anion Gap 16.5 mmol/L (8-16) Blood Urea Nitrogen 18 mg/dL (7-26) Creatinine 0.83 mg/dL (0.57-1.11) Estimat Glomerular Filtration Rate > 60 ML/MIN (60-) BUN/Creatinine Ratio 22 (6-25) Glucose Level 116 mg/dL (74-118) Lactic Acid Level 1.5 mmol/L (0.5-2.0) Calcium Level 10.2 mg/dL (8.4-10.2) Magnesium Level 1.9 MG/DL (1.3-2.1) Total Bilirubin 0.5 mg/dL (0.2-1.2) Aspartate Amino Transf (AST/SGOT) 58 IU/L (5-34) Alanine Aminotransferase (ALT/SGPT) 31 IU/L (0-55) Alkaline Phosphatase 62 IU/L (40-150) Creatine Kinase 232 IU/L (29-168) Creatine Kinase MB 2.30 ng/mL (0-5.0) Troponin I 0.024 ng/mL (0-0.300) B-Type Natriuretic Peptide 24.5 pg/mL (0-100) Total Protein 8.0 g/dL (6.5-8.1) Albumin 3.6 g/dL (3.5-5.0) Globulin 4.4 g/dL (2.3-3.5) Albumin/Globulin Ratio 0.8 (0.8-2.0) Lab results reviewed: Yes Imaging Impressions IMPRESSION: Patchy opacities at the left mid lung and both lung bases concerning for pneumonia, including of atypical etiologies. Signed by: Jonny Sunshine MD on 12/29/2019 4:38 PM Dictated By: JONNY SUNSHINE MD Transcribed By: LEILANI on 12/29/19 1638 Procedures 12 Lead ECG Interpretation ECG Interpretation : [employer]ric Normalizer: Interpreted by ED physician Date: Dec 29, 2019 Time: 14:30 Prior ECG tracings: reviewed Rhythm: sinus tachycardia Rate: tachycardia BPM: 102 QRS axis: normal T wave inversion: aVR, V1, V2 Assessment & Plan Medical Decision Making MDM This is a 74 year old female sent from pcp office c/o fever right side back pain cough hypoxia diarrhea for several days - noted tachy 104 o2 sat 92% rm air - ordered lab ekg cxr - pt medicated w/ ns bolus suspect sepsis meets SIRS criteria hr 104 resp 22 o2 sat 92% rm air source resp/gu blood cultures lactic ordered from triage medicated w/ ns ordered from triage 1435 lactic 1.5 rocephin 1gm ordered at 1600 for uti Reassessment Reassessment time: 17:45 Reassessment discussed lab rad results plan of care and need for admit spoke w/ Dr Natarajan will admit Assessment & Plan Final Impression: (1) Urinary tract infection (2) Pneumonia (3) Sepsis (4) Hypoxemia Depart Disposition: ADMITTED Last Vital Signs Date Time Temp Pulse Resp B/P (MAP) Pulse Ox O2 Delivery O2 Flow Rate FiO2 12/29/19 15:13 98.2 96 40 138/68 94 Medications in the ED Sodium Chloride 1,000 ml @ 0 mls/hr Q0M STAT IV Last administered on 12/29/19at 15:12; Admin Dose 999 MLS/HR; Start 12/29/19 at 14:28; Stop 12/29/19 at 14:33; Status DC DOROTA SOOD MD Dec 29, 2019 16:19
--- NOTE | 2019-12-29 16:41 | Diagnostic Imaging Report ---
EXAMINATION: CHEST SINGLE (PORTABLE) INDICATION: Cough, hypoxia COMPARISON: None FINDINGS: LINES/TUBES:EKG leads overlie the chest. LUNGS:The lungs are moderately inflated. Patchy opacities at the left mid lung and both lung bases. PLEURA:No pleural effusion or pneumothorax. MEDIASTINUM:The cardiomediastinal silhouette appears normal in size and shape. Atherosclerotic calcifications of the thoracic aorta. BONES/SOFT TISSUES:No acute osseous injury. ABDOMEN:No free air under the diaphragm. IMPRESSION: Patchy opacities at the left mid lung and both lung bases concerning for pneumonia, including of atypical etiologies. Signed by: mOari Stevens MD on 12/29/2019 4:38 PM
--- OUTSIDE RECORDS SUMMARY | 2019-12-29 18:19 | XMS REPORT | Continuity of Care Document ---
Author Author [facility] Organization [facility] Address [address] [place] [address] Dr. Patiño. 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 [employer] Medicare Advantage [id number] [facility] Problems This patient has no known problems. Allergies, Adverse Reactions, Alerts Allergy Name Allergy Type Status Severity Reaction(s) Onset Date Inacti ve Date Treating Clinician Comments Source Diphenhydramine Allergy to Substance Active 2017-09-10 00:0 0:00 [facility] Latex Allergy to Substance Active 2017-09-10 00:00:00 [facility] Medications This patient has no known medications. Procedures This patient has no known procedures. Encounters Start Date/Time End Date/Time Encounter Type [facility] Encounter ID Source 2019-01-23 14:46:00 2019-01-23 17:56:00 Departed Emergency Room [facility] [id number] [facility] 2017-09-10 17:17:00 2017-09-11 01:14:00 Departed Emergency Room ER DOROTA SOOD [facility] [id number] [facility] Results Test Description Test Time Test Comments Results Result Comments Source CHEST SINGLE (PORTABLE) 2019-12-29 16:37:00 [facility] [address] [place], [place] [address] Patient Name: KIM LUEVANO MR #: [id number] : 1945 Age/Sex: 74/F Req #: [id number] Adm Physician: Ordered by: DOROTA SOOD MD Report #: [id number] Location: ER Room/Bed: Procedure: [id number] DX/CHEST SINGLE (PORTABLE) Exam Date: 12/29/19 Exam Time: 1624 REPORT STATUS: Signed EXAMINATION: CHEST SINGLE (PORTABLE) INDICATION: Cough, hypoxia COMPARISON: None FINDINGS: LINES/TUBES:EKG leads overlie the chest. LUNGS:The lungs are moderately inflated. Patchy opacities at the left mid lung and both lung base s. PLEURA:No pleural effusion or pneumothorax. MEDIASTINUM:The cardiomediastinal silhouette appears normal in size and shape. Atherosclerotic calcifications of the thoracic aorta. BONES/SOFT TISSUES:No acute osseous injury. ABDOMEN:No free air under the diaphragm. IMPRESSION: Patchy opacities at the left mid lung and both lung bases concerning for pneumonia, including of atypical etiologies. Signed by: Jonny Sunshine MD on 12/29/2019 4:38 PM Dictated By: JONNY SUNSHINE MD 37 Transcribed By: LEILANI on 12/29/198 COPY TO: DOROTA SOOD MD Urine WBC 2017-09-10 22:03:00 Test Item Urine WBC (test code = 5821-4) 11-20 0-5 [facility] [id number] 22:03:00* Test Item Value Reference Range Interpretation Comments Urine RBC (test code = 11349-3) 6-10 0-5 H [facility] Lxggdwua0280-19-48 22:03:00* Test Item Value Reference Range Interpretation Comments Urine Bacteria (test code = 86211-6) NONE NONE [facility] Epithelial Fyfrl4160-69-68 22:03:00 * Test Item Value Reference Range Interpretation Comments Urine Epithelial Cells (test code = 57443-3) FEW NONE [facility] Transitional Epithelial Cells 2017-09-10 22:03:00* Test Item Value Reference Range Interpretation Comments Urine Transitional Epithelial Cells (test code = 8249-5) FEW NONE H [facility] Renal Epithelial Hplsc3163-93-77 22:03:00* Test Item Value Reference Range Interpretation Comments Urine Renal Epithelial Cells (test code = 55581-1) FEW NON E H [facility]iscoB-Type Natriuretic Wizptdw0645-60-99 21:47:00* Test Item Value Reference Range Interpretation Comments B-Type Natriuretic Peptide (test code = 08578-0) 11.6 0-100 [facility] Kinase RI1515-10-05 21:47:00* Test Item Value Reference Range Interpretation Comments Creatine Kinase MB (test code = 42689-6) 2.00 0-5.0 [facility]isco[facility]roponin B0108-28-58 21:47:00* Test Item Value Reference Range Interpretation Comments Troponin I (test code = XRG2717) -0.001 0-0.300 [facility] Guglb3612-01-11 21:45:00* Test Item Value Reference Range Interpretation Comments Urine Color (test code = 5778-6) YELLOW YELLOW [facility] Ewhdnpm7721-33-08 21:45:00* Test Item Value Reference Range Interpretation Comments Urine Clarity (test code = 75855-6) CLOUDY CLEAR H [facility]iscoU[facility] Specific Ilxaxof0970-65-92 21:45:00 * Test Item Value Reference Range Interpretation Comments Urine Specific [place] (test code = 5811-5) 1.025 1.010-1.02 5 [facility] [id number] 21:45:00* Test Item Value Reference Range Interpretation Comments Urine pH (test code = 43094-8) 5 5-7 [facility] Leukocyte Hznizcpw6822-14-92 21:45:00* Test Item Value Reference Range Interpretation Comments Urine Leukocyte Esterase (test code = 5799-2) 2+ NEGATIVE H [facility] Wywihdo7114-21-04 21:45:00* Test Item Value Reference Range Interpretation Comments Urine Nitrite (test code = 38832-5) NEGATIVE NEGATIVE [facility] Lyikgvz5197-83-46 21:45:00* Test Item Value Reference Range Interpretation Comments Urine Protein (test code = 5804-0) NEGATIVE NEGATIVE [facility] Glucose (UA)2017-09-10 21:45:00* Test Item Value Reference Range Interpretation Comments Urine Glucose (UA) (test code = 2349-9) TRACE NEGATIVE H [facility] Xaedzer3758-07-55 21:45:00* Test Item Value Reference Range Interpretation Comments Urine Ketones (test code = 06420-0) NEGATIVE NEGATIVE [facility] Dlnlsyftlmdy3958-81-27 21:45:00* Test Item Value Reference Range Interpretation Comments Urine Urobilinogen (test code = 29384-1) 0.2 0.2-1 [facility] Bnbinlujm9501-81-83 21:45:00* Test Item Value Reference Range Interpretation Comments Urine Bilirubin (test code = 1978-6) NEGATIVE NEGATIVE [facility] Yrjux4199-29-69 21:45:00* Test Item Value Reference Range Interpretation Comments Urine Blood (test code = 98460-7) TRACE NEGATIVE [facility] Taefs2273-04-78 21:40:00* Test Item Value Reference Range Interpretation Comments Sodium Level (test code = 2951-2) 142 136-145 [facility]Potassium Dzsnu4160-47-90 21:40:00* Test Item Value Reference Range Interpretation Comments Potassium Level (test code = 2823-3) 3.4 3.5-5.1 L [facility]iscoChloride Svrjg8142-65-49 21:40:00* Test Item Value Reference Range Interpretation Comments Chloride Level (test code = 2075-0) 108 98-107 H [facility]iscoCarbon Dioxide Vzyhz7548-95-68 21:40:00* Test Item Value Reference Range Interpretation Comments Carbon Dioxide Level (test code = 2028-9) 21 22-29 L [facility] FriscoAnion Lij9162-61-83 21:40:00* Test Item Value Reference Range Interpretation Comments Anion Gap (test code = 02131-2) 16.4 8-16 H [facility]iscoBlood Urea Kgsspbwn0750-18-05 21:40:00* Test Item Value Reference Range Interpretation Comments Blood Urea Nitrogen (test code = 3094-0) 16 7-26 [facility]iscoCreatinine2018-02-21 21:40:00* Test Item Value Reference Range Interpretation Comments Creatinine (test code = 2160-0) 0.84 0.57-1.11 [facility]iscoBUN/Creatinine Xxfld7149-09-39 21:40:00* Test Item Value Reference Range Interpretation Comments BUN/Creatinine Ratio (test code = 3097-3) 19 6-25 [facility] FriscoEstimat Glomerular Filtration Rate 2017-09-10 21:40:00* Test Item Value Reference Range Interpretation Comments Estimat Glomerular Filtration Rate (test code = 66599-7) 60- >60 Ranges were taken from the National Kidney Disease Education Program and the Keisha counts include [facility] literature.Reference ranges:60 or greater: Qdjjkg61-04 ( for 3 consecutive months): Chronic kidney disease 15 or less: Kidney failureBaylor Scott and White Medical Center – FriscoGlucose Vxycy1248-39-88 21:40:00* Test Item Value Reference Range Interpretation Comments Glucose Level (test code = QKR1158) 168 74-118 H [facility] FriscoCalcium Xijsj8584-05-47 21:40:00* Test Item Value Reference Range Interpretation Comments Calcium Level (test code = 94284-8) 9.2 8.4-10.2 [facility] FriscoTotal Fwfposuxf9429-59-52 21:40:00* Test Item Value Reference Range Interpretation Comments Total Bilirubin (test code = 1975-2) 0.4 0.2-1.2 [facility] FriscoAspartate Amino Transf (AST/SGOT) 2017-09-10 21:40:00* Test Item Value Reference Range Interpretation Comments Aspartate Amino Transf (AST/SGOT) (test code = Aspartate Amino Transf (AST/SGOT)) 23 5-34 [facility] FriscoAlanine Aminotransferase (ALT/SGPT) 2017-09-10 21:40:00* Test Item Value Reference Range Interpretation Comments Alanine Aminotransferase (ALT/SGPT) (test code = 1742-6) 15 0-55 [facility] FriscoTotal Zxsmbsg9385-62-07 21:40:00* Test Item Value Reference Range Interpretation Comments Total Protein (test code = 2885-2) 8.0 6.5-8.1 [facility] FriscoAlbumin2018-02-21 21:40:00* Test Item Value Reference Range Interpretation Comments Albumin (test code = 1751-7) 4.3 3.5-5.0 [facility] FriscoGlobulin2018-02-21 21:40:00* Test Item Value Reference Range Interpretation Comments Globulin (test code = 36126-9) 3.7 2.3-3.5 H [facility] FriscoAlbumin/Globulin Pfapd5482-37-38 21:40:00 * Test Item Value Reference Range Interpretation Comments Albumin/Globulin Ratio (test code = 1759-0) 1.2 0.8-2.0 [facility] FriscoAlkaline Ulrxyswkkov7715-29-38 21:40:00* Test Item Value Reference Range Interpretation Comments Alkaline Phosphatase (test code = 6768-6) 102 40-150 [facility] FriscoCreatine Ujeufb0838-35-90 21:40:00* Test Item Value Reference Range Interpretation Comments Creatine Kinase (test code = 2157-6) 124 29-168 [facility] FriscoProthrombin Yegw2369-66-55 21:35:00* Test Item Value Reference Range Interpretation Comments Prothrombin Time (test code = 5902-2) 12.9 11.9-14.5 [facility] FriscoProthromb Time International Ratio 2017-09-10 21:35:00* Test Item Value Reference Range Interpretation Comments Prothromb Time International Ratio (test code = 6301-6) 1.05 Oral Anticoagulant Therapy INR Values:1. Low Intensity Therapy 1.5 - 2.02 . Moderate Intensity Therapy 2.0 - 3.03. High Intensity Therapy(1) 2.5 - 3. 54. High Intensity Therapy(2) 3.0 - 4.05. Panic Value INR > 5.0 [facility] FriscoActivated Partial Thromboplast Time 2017-09-10 21:35:00* Test Item Value Reference Range Interpretation Comments Activated Partial Thromboplast Time (test code = 31796-1) 27.5 23.8-35.5 [facility] FriscoWhite Blood Zvmzk1246-74-61 21:25:00* Test Item Value Reference Range Interpretation Comments White Blood Count (test code = 6690-2) 6.35 4.8-10.8 [facility] FriscoRed Blood Jolbt5328-28-43 21:25:00* Test Item Value Reference Range Interpretation Comments Red Blood Count (test code = 789-8) 4.79 3.6-5.1 [facility] FriscoHemoglobin2018-02-21 21:25:00* Test Item Value Reference Range Interpretation Comments Hemoglobin (test code = 86437-2) 15.1 12.0-16.0 [facility] FriscoHematocrit2018-02-21 21:25:00* Test Item Value Reference Range Interpretation Comments Hematocrit (test code = 4544-3) 44.1 34.2-44.1 [facility] FriscoMean Corpuscular Taioij9431-36-50 21:25:00* Test Item Value Reference Range Interpretation Comments Mean Corpuscular Volume (test code = 787-2) 92.1 81-99 [facility] FriscoMean Corpuscular Kwmvdnycrr0830-33-06 21:25:00* Test Item Value Reference Range Interpretation Comments Mean Corpuscular Hemoglobin (test code = 785-6) 31.5 28-32 [facility] FriscoMean Corpuscular Hemoglobin Concent 2017-09-10 21:25:00* Test Item Value Reference Range Interpretation Comments Mean Corpuscular Hemoglobin Concent (test code = 786-4) 34.2 31-35 [facility] FriscoRed Cell Distribution Khikn0050-49-42 21:25:00* Test Item Value Reference Range Interpretation Comments Red Cell Distribution Width (test code = 36295-0) 12.7 11.7 -14.4 [facility] FriscoPlatelet Fadio6150-03-05 21:25:00* Test Item Value Reference Range Interpretation Comments Platelet Count (test code = 777-3) 201 140-360 [facility] FriscoNeutrophils (%) (Auto)2017-09-10 21:25:00 * Test Item Value Reference Range Interpretation Comments Neutrophils (%) (Auto) (test code = 60497-3) 68.5 38.7-80.0 [facility] FriscoLymphocytes (%) (Auto)2017-09-10 21:25:00 * Test Item Value Reference Range Interpretation Comments Lymphocytes (%) (Auto) (test code = 736-9) 19.5 18.0-39.1 [facility] FriscoMonocytes (%) (Auto)2017-09-10 21:25:00* Test Item Value Reference Range Interpretation Comments Monocytes (%) (Auto) (test code = 5905-5) 9.9 4.4-11.3 [facility]iscoEosinophils (%) (Auto)2017-09-10 21:25:00 * Test Item Value Reference Range Interpretation Comments Eosinophils (%) (Auto) (test code = 713-8) 1.4 0.0-6.0 [facility] FriscoBasophils (%) (Auto)2017-09-10 21:25:00* Test Item Value Reference Range Interpretation Comments Basophils (%) (Auto) (test code = 706-2) 0.5 0.0-1.0 [facility] FriscoIM GRANULOCYTES %2017-09-10 21:25:00* Test Item Value Reference Range Interpretation Comments IM GRANULOCYTES % (test code = IM GRANULOCYTES %) 0.2 0.0- 1.0 [facility] FriscoNeutrophils # (Auto)2017-09-10 21:25:00* Test Item Value Reference Range Interpretation Comments Neutrophils # (Auto) (test code = 751-8) 4.4 2.1-6.9 [facility] FriscoLymphocytes # (Auto)2017-09-10 21:25:00* Test Item Value Reference Range Interpretation Comments Lymphocytes # (Auto) (test code = 44122-6) 1.2 1.0-3.2 [facility] FriscoMonocytes # (Auto)2017-09-10 21:25:00* Test Item Value Reference Range Interpretation Comments Monocytes # (Auto) (test code = 742-7) 0.6 0.2-0.8 [facility]iscoEosinophils # (Auto)2017-09-10 21:25:00* Test Item Value Reference Range Interpretation Comments Eosinophils # (Auto) (test code = 711-2) 0.1 0.0-0.4 [facility] FriscoBasophils # (Auto)2017-09-10 21:25:00* Test Item Value Reference Range Interpretation Comments Basophils # (Auto) (test code = 704-7) 0.0 0.0-0.1 [facility] FriscoAbsolute Immature Granulocyte (auto 2017-09-10 21:25:00* Test Item Value Reference Range Interpretation Comments Absolute Immature Granulocyte (auto (ramses t code = Absolute Immature Granulocyte (auto) 0.01 0-0.1 [facility] FriscoCT BRAIN [facility] [address] [place] [address] Patient Name: KIM LUEVANO MR #: [id number] : 1945 Age/Sex: 71/F Req #: [id number] Adm Physician: Ordered by: DOROTA SOOD MD Report #: [id number] Location: ER Room/Bed: Procedure: [id number] CT/CT BRAIN WO Exam Date: 08/22 08/07 [...] ischemic c hanges. Signed by: Dr. Mariam Caceres M.D. on 09/10/2017 11:54 PM D ictated By: MARIAM CACERES MD Transcribed By: LEILANI on 09/10/17 COPY TO: Yann SOOD MD CHEST SINGLE (NOT PORTABLE) [place] [address] Patient Name: KIM LUEVANO MR #: [id number] : 1945 Age/Sex: 71/F Req #: [id number] Adm Physician: Ordered by: DOROTA SOOD MD Report #: [id number] Location: ER Room/Bed: Procedure: [id number] DX/CHEST SINGLE (NOT PORTABLE) Exam Date: 09/10/17 [...]
[2019-12-29] MEDS ORDERED: ZOLPIDEM TARTRATE 5 MG TAB PO PRN (18:30)
[2019-12-29] MEDS: AZITHROMYCIN 500MG/NS 250 ML 250 ML IV SCH (18:40)
[2019-12-29] MEDS ORDERED: ACETAMINOPHEN 325 MG TAB PO PRN (18:45)
[2019-12-29] MEDS ORDERED: ONDANSETRON HCL INJ 2MG/ML 2ML 2 MG/ML VIAL IV PRN (18:45)
[2019-12-29] MEDS ORDERED: DIPHENOXYLATE/ATROPINE TAB PO PRN (18:45)
[2019-12-29 20:00] VITALS: BP 133/60
[2019-12-29] MEDS ORDERED: CEFTRIAXONE SOD 1 GRAM/0.9% SOD CHL 50ML BAG IV SCH (21:00)
--- NOTE | 2019-12-29 22:00 | Consultation ---
DATE OF CONSULTATION: Pulmonary Critical Care Consultation HISTORY OF PRESENT ILLNESS: The patient is a 74-year-old woman. She reports diarrhea and fever for almost two weeks. She notes some dyspnea and very mild cough. She does not complain of abdominal pain. PAST MEDICAL HISTORY: 1. Hypertension. 2. No prior respiratory problems. 3. No known heart disease. ALLERGIES: THE PATIENT IS ALLERGIC TO DIPHENHYDRAMINE. PAST SURGICAL HISTORY: Noncontributory. REVIEW OF SYSTEMS: The patient is afebrile at home. There is no headache. She has no neck pain. She has no chest pain. She does have some dyspnea. There is no abdominal pain. She has no nausea or vomiting. She has no leg edema. PHYSICAL EXAMINATION: VITAL SIGNS: The patient is afebrile. The blood pressure is 94/62, saturation is 97%, and the pulse is 91. HEENT: Shows no facial swelling or erythema. CARDIAC: Reveals regular rate and rhythm with normal S1 and S2. LUNGS: Auscultation of lungs shows clear breath sounds bilaterally. There is no wheezing. ABDOMEN: Soft and nontender. There is no rebound or guarding. EXTREMITIES: Shows no leg edema or calf tenderness. LABORATORY DATA: Urinalysis shows greater than 50 white blood cells. BUN to creatinine ratio is normal. The carbon dioxide is 21 and the potassium is 3.5. White blood cell count is 7.9 and hemoglobin is 14.8. The platelet count is 156. RADIOGRAPHIC DATA: Chest x-ray shows patchy opacities in the mid left lung field and at the bases bilaterally. RADIOGRAPHIC DATA: Chest x-ray shows bilateral infiltrates. IMPRESSION: 1. Urinary tract infection with sepsis, present on admission. 2. Viral pneumonia and COVID-19 infection. 3. Hypertension. 4. Diarrhea. PLAN: 1. The patient will receive IV antibiotics. 2. Judicious use of IV fluids. 3. Anticoagulation. 4. Oxygen. 5. Tylenol. 6. Consider remdesivir if COVID-19 PCR is positive. Mark Wright MD LM/BETHANY /[id number]
[2019-12-30] VITALS (7 sets, daily range): BP systolic 104–132; BP diastolic 51–76
[2019-12-30] MEDS: CEFTRIAXONE SOD 1 GM/NS 50 ML 50 ML IV SCH ×2 (05:00→18:19)
--- NOTE | 2019-12-30 07:00 | NUR ---
{null, change of shift report received from PM nurse. pt in stable condition. }
[2019-12-30 07:17] LABS: BASOPHILS % 0.2 % (0.0-1.0); HEMATOCRIT 38.2 % (34.2-44.1); HEMOGLOBIN 13.1 g/dL (12.0-16.0); LYMPHOCYTES # (AUTO) 0.5 (1.0-3.2); LYMPHOCYTES % 9.6 % (18.0-39.1); MEAN CORPUSCULAR HEMOGLOBIN 30.4 pg (28-32); MEAN CORPUSCULAR HGB CONC 34.3 g/dL (31-35); MEAN CORPUSCULAR VOLUME 88.6 fL (81-99); MONOCYTES # (AUTO) 0.5 (0.2-0.8); MONOCYTES % 8.4 % (4.4-11.3); NEUTROPHILS # (AUTO) 4.3 (2.1-6.9); NEUTROPHILS % 81.2 % (38.7-80.0); PLATELET COUNT 154 x10e3/uL (140-360); RED BLOOD COUNT 4.31 x10e6/uL (3.6-5.1); RED CELL DISTRIBUTION WIDTH 12.1 % (11.7-14.4)
[2019-12-30 07:35] LABS: ALANINE AMINOTRANSFERASE 25 IU/L (0-55); ALBUMIN 2.7 g/dL (3.5-5.0); ALBUMIN/GLOBULIN RATIO 0.7 (0.8-2.0); ALKALINE PHOSPHATASE 55 IU/L (40-150); BLOOD UREA NITROGEN 9 mg/dL (7-26); BUN/CREATININE RATIO 15 (6-25); CALCIUM 8.6 mg/dL (8.4-10.2); CARBON DIOXIDE 19 mmol/L (22-29); CHLORIDE 109 mmol/L (98-107); CREATININE, SERUM 0.62 mg/dL (0.57-1.11); EST GLOMERULAR FILTRATION RATE > 60 ML/MIN (60-); GLUCOSE 99 mg/dL (74-118); SODIUM 141 mmol/L (136-145)
[2019-12-30 08:09] LABS: CREATINE KINASE MB 2.6 ng/mL (0-5.0)
--- NOTE | 2019-12-30 09:25 | NUR ---
{null, Telephone visit attempted by Chief Relay Tester. No answer. Will follow as able. TAMANNA GARCIA Chief Relay Tester Spiritual Care Department O: [phone] }
[2019-12-30] MEDS ORDERED: POTASSIUM CHLORIDE 20 MEQ TAB CR PO SCH (13:00)
--- NOTE | 2019-12-30 13:08 | Progress Note ---
DATE: SUBJECTIVE: The patient still has some diarrhea. She has mild dyspnea. She is not having cough. She has no fevers. PHYSICAL EXAMINATION: VITAL SIGNS: The patient is afebrile. Blood pressure is 104/51 and the saturation is 93% off oxygen. The pulse is 86 and the respiratory rate is normal. HEENT: Shows no facial swelling or erythema. CARDIAC: Reveals a regular rate and rhythm with normal S1 and S2. LUNGS: Auscultation of lungs reveals clear breath sounds bilaterally. There is no wheezing. ABDOMEN: Soft and nontender. There is no rebound or guarding. EXTREMITIES: Shows no leg edema or calf tenderness. There is no cyanosis or clubbing. SKIN: Shows no rashes. NEUROLOGICAL: Shows no focal abnormalities. LABORATORY DATA: The CO2 is 19 and the potassium is 3. Chloride is 109. Albumin is 2.7. White blood cell count is 5.3 and the hemoglobin is 13.1. The platelet count is 154. IMPRESSION: 1. Viral pneumonia and COVID-19 infection. 2. Diarrhea and gastroenteritis. 3. Hypertension. 4. Urinary tract infection. PLAN: 1. Continue current antibiotics. 2. Lovenox. 3. Oxygen. 4. Lomotil. 5. Continue fluids as needed. 6. Consider remdesivir. Mark Wright MD [facility]/CYDNEYL /[id number]
[2019-12-30] MEDS ORDERED: LOSARTAN POTASS25 MG PO (13:52)
[2019-12-30] MEDS ORDERED: AMLODIPINE BESY10 MG PO (13:52)
[2019-12-30] MEDS ORDERED: METFORMIN HCL500 M2 PO (13:52)
[2019-12-30 15:19] LABS: CREATINE KINASE MB 2.4 ng/mL (0-5.0)
[2019-12-30] MEDS ORDERED: ENOXAPARIN SOD INJ 40 MG/0.4 ML SYR SC SCH (17:00)
[2019-12-30] MEDS: AZITHROMYCIN 500MG/NS 250 ML 250 ML IV SCH (18:48)
--- NOTE | 2019-12-30 21:55 | Consultation ---
DATE OF CONSULTATION: 12/30/2019 HISTORY OF PRESENT ILLNESS: Ms. Garcia is a 74-year-old female, who comes in with abdominal discomfort, diarrhea, not feeling well, little bit fever sensation, minimal shortness of breath and cough, comes in the emergency room where she was being admitted. The patient was admitted, started on antibiotic. LABORATORY DATA: Her urine showing gram-negative rods. Her blood cultures negative. Her COVID-19 was positive. Her sodium 141, potassium , creatinine 0.62. MEDICATIONS: She is on ceftriaxone and azithromycin. RADIOGRAPHIC DATA: Her chest x-ray, which was done showed that she had patchy opacity of the left lung. PHYSICAL EXAMINATION: GENERAL: Currently alert and oriented. VITAL SIGNS: Stable, currently afebrile. HEENT: She is not icteric. NECK: Supple. CHEST: Clear. HEART: S1 and S2. No S3, S4, or murmur. ABDOMEN: Soft. IMPRESSION: 1. COVID-19, present on admission. 2. Urinary tract infection, present on admission. 3. Pneumonia, COVID-19, probably bacterial pneumonia. Clinically, she seems to be doing really good. Continue with antibiotic as ordered. Continue supportive care. She does not seem to be hypoxemic. We will reassess in the morning. MD HELEN Varghese/BETHANY /[id number]
[2019-12-31] VITALS: BP 114/69
--- NOTE | 2019-12-31 02:10 | History and Physical ---
PRIMARY CARE PHYSICIAN: Bairon Pérez MD CONSULTING PHYSICIANS: Dr. Del Valle with Infectious Disease and Dr. Mark Wright with Pulmonology/Critical Care Medicine. CHIEF COMPLAINT: Fever. HISTORY OF PRESENT ILLNESS: The patient is a 74-year-old female, sent from her PCP office with complaints of fever, right-sided back pain, cough, hypoxia, and diarrhea for several days. She has also had severe depression, poor oral intake. PAST MEDICAL HISTORY: Hypertension, CVA, depression, hyperlipidemia, prediabetes, fibroadenoma of the right breast, osteoarthritis, hyperlipidemia, cataract. PAST SURGICAL HISTORY: Right breast lumpectomy. FAMILY HISTORY: Noncontributory. SOCIAL HISTORY: Denies history of tobacco, alcohol, or illicit drugs. ALLERGIES: LATEX AND DIPHENHYDRAMINE. HOME MEDICATIONS: 1. Amlodipine besylate 10 mg p.o. daily. 2. Losartan potassium 50 mg p.o. daily. 3. Metformin 500 mg ER p.o. a.c. breakfast. REVIEW OF SYSTEMS: A 14-point review of systems was completed and is generally as per history of present illness, having chills off and on, right-sided back pain, fever, cough, 10 diarrheal stools today. Poor oral intake. She is asking if she is going home today. PHYSICAL EXAMINATION: VITAL SIGNS: Temperature 99.1, T-max 99.7, heart rate 88, blood pressure 122/54, respirations 16, oxygen saturation 98% on 2 L of oxygen via nasal cannula. Weight 158 pounds, BMI of 30.85. GENERAL: Lying supine in bed at bed elevated. LUNGS: Generally clear to auscultation. Disposable stethoscope utilized. Oxygen at 2 L/minute via nasal cannula. Relaxed respirations. HEENT: EOMI. NECK: Supple. CARDIOVASCULAR: Regular rate and rhythm. No murmur. ABDOMEN: Bowel sounds positive. Soft, nontender. EXTREMITIES: No pitting edema. No clubbing or cyanosis. No signs of DVT. NEUROLOGIC: GCS 15. Nonfocal. Flat affect. DIAGNOSTIC STUDIES: Laboratory data on admission, sodium 136, potassium 3.5, chloride 102, CO2 of 21, anion gap 16.5, BUN 18, creatinine 0.83, estimated GFR greater than 60, glucose 116, lactic acid 1.5, calcium 10.2, magnesium 1.9, total bilirubin 0.5. AST 58, ALT 31, alkaline phosphatase 62. Creatine kinase 232, CK-MB 2.3, troponin I 0.024. B-type natriuretic peptide 24.5. Total protein 8.0, albumin 3.6. WBC 7.97, hemoglobin 14.8, hematocrit 43.1, platelets 156, neutrophils 88.7. PT 12.9, INR 0.92, PTT 30. Urinalysis showed slightly cloudy urine, specific gravity is 1.02, protein 1+, trace amount of ketones, negative glucose, small amount of blood, positive nitrite, moderate amount of leukocyte esterase. RBC 6 to 10, WBC greater than 50. Urine bacteria many. Coronavirus by PCR was detected. No growth from blood cultures after 24 hours. Urine culture preliminary report shows gram negative bacillus. Today's Laboratory data: WBC 5.33, hemoglobin 13.1, hematocrit 38.2, platelets 154. Sodium 141, potassium 3.0, chloride 109, CO2 of 19, anion gap 16. BUN 9, creatinine 0.62, estimated GFR greater than 60, glucose 99, calcium 8.6, total bilirubin 0.4. AST 48, ALT 25, alkaline phosphatase 55. Creatine kinase 181, CK-MB 2.6, troponin I 0.014. Subsequently, creatine kinase 148, CK-MB 2.4, troponin I 0.012. Total protein 6.5, albumin 2.7. Chest x-ray done on 12/28, showed patchy opacities at the left mid lung and both lung bases concerning for pneumonia, including of atypical etiologies. Telemetry today showed normal sinus rhythm with a heart rate of 85. A 12-lead EKG done on 12/28, showed sinus tachycardia with a ventricular rate of 102. ASSESSMENT AND PLAN: 1. Viral cap due to coronavirus disease 2019 infection, POA. Pulmonology and Infectious Disease are following. Rocephin and azithromycin. Continue supplemental oxygen. Consider remdesivir. 2. Diarrhea and gastroenteritis, 10 diarrhea stools today. Currently, the patient does not appear extremely weak, but I do not feel comfortable discharging her after some many diarrhea stools. Questran was ordered, however, the patient could not tolerate the taste and this was changed to Pepto-Bismol along with p.r.n. Lomotil. Monitor diarrhea. 3. Controlled hypertension. Currently, antihypertensives and prediabetic medications not needed. Monitor blood pressure. 4. Urinary tract infection, POA. Await final urine culture results. Continue Rocephin. 5. Acute hypokalemia, 40 mEq of potassium chloride p.o. once ordered earlier today. Reassess potassium in the morning along with magnesium level. 6. Hyperlipidemia. We will check lipid panel. 7. Prophylaxis IV Pepcid. Billing code 20155. TIME SPENT: 60 minutes. Dictated by Stephen Nevarez NP MD [facility] /[id number]
[2019-12-31 04:00] VITALS: BP 113/61
[2019-12-31] MEDS: CEFTRIAXONE SOD 1 GM/NS 50 ML 50 ML IV SCH (04:00)
[2019-12-31 04:01] LABS: BASOPHILS % 0.4 % (0.0-1.0); EOSINOPHILS % 0.2 % (0.0-6.0); HEMATOCRIT 39.9 % (34.2-44.1); HEMOGLOBIN 13.6 g/dL (12.0-16.0); LYMPHOCYTES # (AUTO) 0.7 (1.0-3.2); LYMPHOCYTES % 14.5 % (18.0-39.1); MEAN CORPUSCULAR HEMOGLOBIN 30.1 pg (28-32); MEAN CORPUSCULAR HGB CONC 34.1 g/dL (31-35); MEAN CORPUSCULAR VOLUME 88.3 fL (81-99); MONOCYTES # (AUTO) 0.6 (0.2-0.8); MONOCYTES % 11.7 % (4.4-11.3); NEUTROPHILS # (AUTO) 3.6 (2.1-6.9); NEUTROPHILS % 72.6 % (38.7-80.0); PLATELET COUNT 186 x10e3/uL (140-360); RED BLOOD COUNT 4.52 x10e6/uL (3.6-5.1); RED CELL DISTRIBUTION WIDTH 12.1 % (11.7-14.4)
[2019-12-31 04:12] LABS: CHOL/HDL RATIO 3.3 (3.0-3.6); MAGNESIUM 1.8 MG/DL (1.3-2.1); PHOSPHORUS 1.5 MG/DL (2.3-4.7)
[2019-12-31 04:22] LABS: ALANINE AMINOTRANSFERASE 24 IU/L (0-55); ALBUMIN 2.7 g/dL (3.5-5.0); ALBUMIN/GLOBULIN RATIO 0.7 (0.8-2.0); ALKALINE PHOSPHATASE 55 IU/L (40-150); ANION GAP 13.3 mmol/L (8-16); BLOOD UREA NITROGEN 10 mg/dL (7-26); BUN/CREATININE RATIO 17 (6-25); CALCIUM 8.6 mg/dL (8.4-10.2); CARBON DIOXIDE 21 mmol/L (22-29); CHLORIDE 111 mmol/L (98-107); CREATININE, SERUM 0.59 mg/dL (0.57-1.11); EST GLOMERULAR FILTRATION RATE > 60 ML/MIN (60-); GLUCOSE 97 mg/dL (74-118); POTASSIUM 3.3 mmol/L (3.5-5.1); SODIUM 142 mmol/L (136-145)
[2019-12-31 04:32] LABS: THYROID STIMULATING HORMONE 1.402 uIU/mL (0.350-4.940)
--- NOTE | 2019-12-31 07:36 | NUR ---
{null, CHANGE OF SHIFT REPORT RECEIVED FROM HADOOP ENGINEER NURSE. PT IN STABLE CONDITION. }
[2019-12-31 08:00] VITALS: BP_SYST 121; BP_SYST 129; BP_DIAS 75; BP_DIAS 79
[2019-12-31 08:38] VITALS: BP 113/61
[2019-12-31] MEDS ORDERED: FAMOTIDINE 20 MG/2 ML VIAL IV SCH (09:00)
[2019-12-31 12:00] VITALS: BP 112/44
--- NOTE | 2019-12-31 16:20 | NUR ---
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 INFORMED HIM THAT DR. PETERS FINISHED SEEING PT EARLIER AND HAS CLEARED HER FOR DISCHARGE FROM HIS STANDPOINT. Robles STATES HE WILL BEGIN DISCHARGE PAPERWORK. }
--- NOTE | 2019-12-31 16:37 | NUR ---
{null, Nutrition Screen Note RD Recommendation for Physician: -Continue current diet as ordered -If PO intake <50% of meals, offer a nutrition supplement Plan of Care: RD following, monitoring for tolerance and adequacy Nutrition reason for involvement: Nutrition Risk Trigger MST 3 Primary Diagnose(s): pneumonia, sepsis, and UTI PMH: Hypertension, CVA, depression, hyperlipidemia, prediabetes, fibroadenoma of the right breast, osteoarthritis, hyperlipidemia, cataract Ht: 60 in Wt: 137 lb BMI: 28.6 kg/m2 IBW:[address] Assessment: (12/31/19) Chart reviewed. Labs and meds reviewed. Pt is a 74 year old female admitted with pneumonia, sepsis, and UTI, Pt is COVID-19+; therefore, unable to enter room due to droplet isolation precautions. Attempted to call pt over the phone, but she did not answer. Therefore, spoke to RN who reported pt is consuming about 50% of her meals. Unable to assess weight status at this time. No N/V, but it is noted pt has been having diarrhea. Will continue to monitor. Current Diet: 1800 ADA Malnutrition Evaluation (12/31/19) Unable to assess. Will re-evaluate at follow-up as appropriate. Diet Education Needs Assessment: RD is available for diet education as needed Nutrition Care Level: low Signed: Heather Newton, RD, LD }
[2019-12-31] MEDS ORDERED: ACETAMINOPHEN325 M1 PO (17:18)
[2019-12-31] MEDS ORDERED: CEFUROXIME500 MG PO (17:18)
[2019-12-31] MEDS ORDERED: DIPHENOXYLATE-1 EACH PO (17:18)
[2019-12-31] MEDS ORDERED: POTASSIUM CHLORIDE 20 MEQ TAB CR PO ONE (18:58)
--- NOTE | 2019-12-31 19:15 | Progress Note ---
DATE: SUBJECTIVE: The patient is not having further diarrhea. She is off oxygen. She is very eager to go home. PHYSICAL EXAMINATION: VITAL SIGNS: The patient is afebrile. The blood pressure is 112/44, pulse is 78. CARDIAC: Reveals regular rate and rhythm with normal S1 and S2. LUNGS: Auscultation of lungs reveals crackles at the bases. There is no wheezing. ABDOMEN: Soft, nontender. There is no rebound or guarding. EXTREMITIES: Shows no leg edema or calf tenderness. There is no cyanosis or clubbing. SKIN: Shows no rashes. NEUROLOGICAL: Shows no focal abnormalities. LABORATORY DATA: Carbon dioxide is 21. The BUN to creatinine ratio is normal. The potassium is 3.3, the phosphorus is 1.5, albumin is 2.7. White blood cell count is 4.9, hemoglobin is 13.6, the platelet count is 186. IMPRESSION: 1. COVID-19 and viral pneumonia. 2. Viral gastroenteritis. 3. Hypertension. 4. Urinary tract infection. 5. Hypokalemia. PLAN: 1. Arrange for discharge with home oxygen. 2. Continue antibiotics at home. 3. Replace potassium. 4. Follow up in 1-2 weeks to make sure the patient is improving. Mark Wright MD [facility] /[id number]
--- NOTE | 2019-12-31 21:20 | Progress Note ---
DATE: SUBJECTIVE: Ms. Garcia is feeling better. She wants to go home. REVIEW OF SYSTEMS: Otherwise unremarkable. PHYSICAL EXAMINATION: GENERAL: She is currently alert, oriented, does not seem in acute distress. VITAL SIGNS: Stable. Currently afebrile. HEENT: She is not icteric. NECK: Supple. CHEST: Clear. HEART: S1, S2. ABDOMEN: Soft. IMPRESSION: 1. COVID-19, better. 2. Urinary tract infection, improving with Escherichia coli and the patient could be discharged home with Ceftin 500 mg p.o. b.i.d. for 14 days and aspirin 1 p.o. daily. Follow up as an outpatient with me in 2 weeks. MD HELEN Varghese/[facility] /[id number]
--- NOTE | 2020-01-01 02:11 | Discharge Summary ---
CONSULTING PHYSICIANS: 1. Jon Del Valle MD. 2. Mark Wright MD. CHIEF COMPLAINT: Fever. HOSPITAL COURSE: She is a 74-year-old female, sent here from her PCP office with complaints of fever, right-sided back pain, cough, hypoxia, and diarrhea for several days. She also has a history of severe depression, poor oral intake. PAST MEDICAL HISTORY: Hypertension, CVA, depression, hyperlipidemia, prediabetes, fibroadenoma of the right breast, osteoarthritis, hyperlipidemia, and cataract. PAST SURGICAL HISTORY: Right breast lumpectomy. FAMILY HISTORY: Noncontributory. SOCIAL HISTORY: Denies history of tobacco, alcohol, or illicit drugs. ALLERGIES: LATEX AND DIPHENHYDRAMINE. ADMITTING DIAGNOSES: 1. Viral community-acquired pneumonia due to a coronavirus, present on admission. 2. Diarrhea and gastroenteritis. 3. Controlled hypertension. 4. Urinary tract infection, present on admission. 5. Acute hypokalemia. 6. Hyperlipidemia. Final urine culture showed E. coli with greater than 100,000 CFU per mL, it is multidrug resistant. Prescription for Ceftin has been written by Dr. Del Valle 500 mg p.o. b.i.d. for 14 days. DISCHARGE DIAGNOSES: 1. Viral community-acquired pneumonia due to a coronavirus, present on admission. 2. Diarrhea and gastroenteritis. 3. Controlled hypertension. 4. Escherichia coli urinary tract infection, present on admission. 5. Acute hypokalemia. 6. Hyperlipidemia. Final urine culture showed E. coli with greater than 100,000 CFU per mL, it is multidrug resistant. Prescription for Ceftin has been written by Dr. Del Valle 500 mg p.o. b.i.d. for 14 days. I saw the patient yesterday. She was on 2 L of oxygen via nasal cannula. However, the nurse reports that today every time she was in the room with the patient, the patient had oxygen off. When I entered the patient's room, she was not wearing oxygen. Her respirations were relax. Physical exam essentially unchanged from yesterday. She received Rocephin and azithromycin. She reportedly had 10 diarrhea stools yesterday, had a couple of loose stools today. Questran had been ordered. However, the patient could not tolerate the taste. This was changed to Pepto-Bismol along with p.r.n. Lomotil, diarrhea much improved. Potassium today 3.3, yesterday 3.0. We will give an additional 40 mEq of potassium chloride orally prior to leaving. It is also noted that the phosphorus is 1.5 today. Thus, we will add Neutra-Phos daily. Magnesium level 1.8, triglyceride 77, cholesterol 117, LDL 67, HDL 35, TSH 1.402. The patient will be discharged home with family. The patient's is also being discharged today and also has coronavirus. Apparently, there are 2 separate children, who are each taking care of these patients individually. Continue ADA diet. Activity level as tolerated. Due to patient's age and comorbidities, she is at high risk for readmission, however, appears very stable, not requiring oxygen at this time. We will discharge her home and see how she does. The patient to follow up with PCP Dr. Bairon Pérez in 1 to 2 weeks. Follow up with Dr. Del Valle and Dr. Wright on an outpatient basis p.r.n. Dictated by Stephen Nevarez NP Carloz Natarajan MD [facility] /[id number]
== END 2019-12-31 18:45 | disposition home or self-care (01) | DRG 871 ==
LOC: ER 14:04 → ERHOLD 18:07 → IMCU 20:45
PROVIDERS: ADMIT Internal Medicine; ATTEND Internal Medicine
DX: A41.89 Other specified sepsis (principal); J12.89 Other viral pneumonia; U07.1 COVID-19; N39.0 Urinary tract infection, site not specified; Z16.24 Resistance to multiple antibiotics; R09.02 Hypoxemia; R73.03 Prediabetes; I10 Essential (primary) hypertension; E78.5 Hyperlipidemia, unspecified; D24.1 Benign neoplasm of right breast; F32.9 Major depressive disorder, single episode, unspecified; Z88.8 Allergy status to other drugs, medicaments and biological substances; Z91.040 Latex allergy status; K52.9 Noninfective gastroenteritis and colitis, unspecified; E87.6 Hypokalemia; B96.20 Unspecified Escherichia coli [E. coli] as the cause of diseases classified elsewhere
CPT/HCPCS: 36415; 71045; 80053; 80061; 81001; 82550; 82553; 82948; 83605; 83735; 83880; 84100; 84443; 84484; 85025; 85610; 85730; 87040; 87086; 87186; 87635; 93005; 99285; J0456; J0696; J1650; J7030

== ENCOUNTER 2020-01-13 19:33 | Emergency (ER) | payer MEDICARE ==
[~2020-01-13] VITALS: Ht 157.5 cm; Wt 62.1 kg
[~2020-01-13 19:33] MED LIST: ACETAMINOPHEN325 M1 PO; AMLODIPINE BESY10 MG PO; CEFUROXIME500 MG PO; DIPHENOXYLATE-1 EACH PO; LOSARTAN POTASS25 MG PO; METFORMIN HCL500 M2 PO
[2020-01-13 22:00] LABS: BASOPHILS # (AUTO) 0.1 (0.0-0.1); EOSINOPHILS # (AUTO) 0.1 (0.0-0.4); EOSINOPHILS % 2.2 % (0.0-6.0); HEMATOCRIT 44.4 % (34.2-44.1); HEMOGLOBIN 14.7 g/dL (12.0-16.0); LYMPHOCYTES # (AUTO) 1.2 (1.0-3.2); LYMPHOCYTES % 19.6 % (18.0-39.1); MEAN CORPUSCULAR HEMOGLOBIN 30.4 pg (28-32); MEAN CORPUSCULAR HGB CONC 33.1 g/dL (31-35); MEAN CORPUSCULAR VOLUME 91.7 fL (81-99); MONOCYTES # (AUTO) 0.8 (0.2-0.8); MONOCYTES % 13.2 % (4.4-11.3); NEUTROPHILS % 63.7 % (38.7-80.0); PLATELET COUNT 234 x10e3/uL (140-360); RED BLOOD COUNT 4.84 x10e6/uL (3.6-5.1); RED CELL DISTRIBUTION WIDTH 13.2 % (11.7-14.4)
[2020-01-13 22:12] LABS: ALANINE AMINOTRANSFERASE 25 IU/L (0-55); ALBUMIN 3.9 g/dL (3.5-5.0); ALKALINE PHOSPHATASE 61 IU/L (40-150); ANION GAP 12.3 mmol/L (8-16); BLOOD UREA NITROGEN 11 mg/dL (7-26); BUN/CREATININE RATIO 15 (6-25); CALCIUM 11.5 mg/dL (8.4-10.2); CARBON DIOXIDE 29 mmol/L (22-29); CHLORIDE 105 mmol/L (98-107); CREATINE KINASE 58 IU/L (29-168); CREATININE, SERUM 0.75 mg/dL (0.57-1.11); EST GLOMERULAR FILTRATION RATE > 60 ML/MIN (60-); GLUCOSE 124 mg/dL (74-118); POTASSIUM 3.3 mmol/L (3.5-5.1); SODIUM 143 mmol/L (136-145)
--- NOTE | 2020-01-13 23:03 | NUR ---
Pt start taking cardiac monitoring d/t sun downing, she was unable to tolerate & getting aggitated per daughter at bedside.
--- NOTE | 2020-01-13 23:17 | Diagnostic Imaging Report ---
EXAMINATION: Head CT without contrast. HISTORY:Altered mental status, fall. COMPARISON:CT brain from 09/10/2017. TECHNIQUE: Multidetector axial images were obtained from the foramen magnum to the vertex without contrast. The images were reconstructed using brain and bone algorithms. Thin section brain images were reformatted into coronal and sagittal planes. Dose modulation, iterative reconstruction, and/or weight based adjustment of the mA/kV was utilized to reduce the radiation dose to as low as reasonably achievable. Intravenous contrast: None IMAGE QUALITY: Acceptable. FINDINGS: Skull/scalp: No lytic or blastic. lesions. No surgical changes. Parenchyma: Nonspecific few, scattered supratentorial white matter hypodensity are likely related to small vessel ischemic changes. No acute hemorrhage, mass or acute major vascular territorial infarct. Arteries: No density suggestive of thrombosis. Atherosclerotic calcification in bilateral carotid siphon. Dural sinuses: No abnormal density suggestive of thrombosis. Ventricles: No hydrocephalus or displacement. Extra-axial spaces: No abnormal density. Brain volume: Normal for age. Craniocervical junction: No mass, Chiari malformation, or basilar invagination. Sella: No mass. Paranasal/mastoid sinuses: Imaged portions unremarkable. IMPRESSION: No acute intracranial abnormality. No change since CT head from 09/10/2017. Chronic findings: Mild supratentorial white matter microvascular ischemic changes. Signed by: Dr. Mariam Linares M.D. on 01/13/2020 11:14 PM
--- NOTE | 2020-01-13 23:20 | Diagnostic Imaging Report ---
Examination: Single AP view of the chest. COMPARISON: Portable chest 12/29/2019 and 09/10/2017 INDICATION: Covid Positive, frequent falls, AMS IMPRESSION: 1. Lines and Tubes: None 2. Slight interval worsening of bilateral multifocal patchy airspace opacities bilaterally likely reflecting multifocal pneumonia (including viral disease). 3. Cardiomediastinal silhouette is normal. Pulmonary vasculature is normal. 4. No acute bony abnormalities. Signed by: Dr. Bairon Brandt M.D. on 01/13/2020 11:16 PM
--- NOTE | 2020-01-14 01:20 | Emergency Department Note ---
History of Present Illnes History of Present Illness Chief Complaint: General Medicine Complaints History of Present Illness This is a 74 year old female PT AAOX3 PRESENTS TO THE ER REPORTING LT ARM AND BILATERAL FEET NUMBNESS X4 DAYS; PT AGITATED IN TRIAGE, PT UNABLE TO SIT STILL; PT DENIES CP OR SOB; PT ATTEMPTING TO STAND UP MULTIPLE TIMES DURING TRIAGE; PT WAS DX WITH COVID ON 12/29/19; PT'S DAUGHTER STATES PT HAS FALLEN MULTIPLE TIMES IN THE PAST FEW DAYS . Historian: Patient Arrival Mode: Car Onset (how long ago): day(s) (4) Location: LEFT ARM, BOTH LEGS Quality: TINGLING, NUMBNESS Radiation: Reports non-radiation Severity: mild Onset quality: gradual Duration (how long): day(s) (4) Timing of current episode: constant Progression: unchanged Chronicity: new Context: Reports recent illness (COVID 19 INFECTION) Relieving factors: none Exacerbating factors: none Associated symptoms: Reports denies other symptoms Past Medical/Family History Physician Review I have reviewed the patient's past medical and family history. Any updates have been documented here. Past Medical History Recent Fever: No Clinical Suspicion of Infectio: No New/Unexplained Change in Ment: Yes Past Medical History: Hypertension, Diabetes Other Medical History: prediabetes fibroadenoma of rt breast OA cataract COVID-19 Other Surgery: CATARACTS Other Last Tetanus: Unknown Review of Systems Review of Systems Constitutional: Reports no symptoms EENTM: Reports no symptoms Cardiovascular: Reports no symptoms Respiratory: Reports no symptoms Gastrointestinal: Reports no symptoms Genitourinary: Reports no symptoms Musculoskeletal: Reports no symptoms Integumentary: Reports no symptoms Neurological: Reports as per HPI Psychological: Reports no symptoms Endocrine: Reports no symptoms Hematological/Lymphatic: Reports no symptoms Physical Exam Related Data Allergies: Coded Allergies: diphenhydramine (Verified Allergy, Unknown, 09/10/17) latex (Verified Allergy, Unknown, 09/10/17) Triage Vital Signs Vital Signs Date Time Temp Pulse Resp B/P (MAP) Pulse Ox O2 Delivery O2 Flow Rate FiO2 01/13/20 21:30 96.7 97 20 150/85 93 Vital signs reviewed: Yes Physical Exam CONSTITUTIONAL Constitutional: Present well-developed, Present well-nourished HENT HENT: Present normocephalic, Present atraumatic, Present oropharynx clear/moist, Present nose normal HENT L/R: Present left ext ear normal, Present right ext ear normal EYES Eyes: Reports PERRL, Reports conjunctivae normal NECK Neck: Present ROM normal PULMONARY Pulmonary: Present effort normal, Present breath sounds normal CARDIOVASCULAR Cardiovascular: Present regular rhythm, Present heart sounds normal, Present capillary refill normal, Present normal rate GASTROINTESTINAL Abdominal: Present soft, Present nontender, Present bowel sounds normal GENITOURINARY Genitourinary: Present exam deferred SKIN Skin: Present warm, Present dry MUSCULOSKELETAL Musculoskeletal: Present ROM normal NEUROLOGICAL Neurological: Present alert, Present oriented x 3, Present no gross motor or sensory deficits, Present other (NEURO EXAM NONFOCAL) PSYCHOLOGICAL Psychological: Present mood/affect normal, Present judgement normal Results Laboratory Result Diagram: 01/13/20213301/13/202133 Laboratory Laboratory Tests Test 01/13/20 21:34 White Blood Count 6.28 x10e3/uL (4.8-10.8) Red Blood Count 4.84 x10e6/uL (3.6-5.1) Hemoglobin 14.7 g/dL (12.0-16.0) Hematocrit 44.4 % (34.2-44.1) Mean Corpuscular Volume 91.7 fL (81-99) Mean Corpuscular Hemoglobin 30.4 pg (28-32) Mean Corpuscular Hemoglobin Concent 33.1 g/dL (31-35) Red Cell Distribution Width 13.2 % (11.7-14.4) Platelet Count 234 x10e3/uL (140-360) Neutrophils (%) (Auto) 63.7 % (38.7-80.0) Lymphocytes (%) (Auto) 19.6 % (18.0-39.1) Monocytes (%) (Auto) 13.2 % (4.4-11.3) Eosinophils (%) (Auto) 2.2 % (0.0-6.0) Basophils (%) (Auto) 1.0 % (0.0-1.0) Neutrophils # (Auto) 4.0 (2.1-6.9) Lymphocytes # (Auto) 1.2 (1.0-3.2) Monocytes # (Auto) 0.8 (0.2-0.8) Eosinophils # (Auto) 0.1 (0.0-0.4) Basophils # (Auto) 0.1 (0.0-0.1) Absolute Immature Granulocyte (auto 0.02 x10e3/uL (0-0.1) Sodium Level 143 mmol/L (136-145) Potassium Level 3.3 mmol/L (3.5-5.1) Chloride Level 105 mmol/L (98-107) Carbon Dioxide Level 29 mmol/L (22-29) Anion Gap 12.3 mmol/L (8-16) Blood Urea Nitrogen 11 mg/dL (7-26) Creatinine 0.75 mg/dL (0.57-1.11) Estimat Glomerular Filtration Rate > 60 ML/MIN (60-) BUN/Creatinine Ratio 15 (6-25) Glucose Level 124 mg/dL (74-118) Calcium Level 11.5 mg/dL (8.4-10.2) Total Bilirubin 0.6 mg/dL (0.2-1.2) Aspartate Amino Transf (AST/SGOT) 28 IU/L (5-34) Alanine Aminotransferase (ALT/SGPT) 25 IU/L (0-55) Alkaline Phosphatase 61 IU/L (40-150) Creatine Kinase 58 IU/L (29-168) Creatine Kinase MB 1.40 ng/mL (0-5.0) Troponin I 0.162 ng/mL (0-0.300) Total Protein 7.9 g/dL (6.5-8.1) Albumin 3.9 g/dL (3.5-5.0) Globulin 4.0 g/dL (2.3-3.5) Albumin/Globulin Ratio 1.0 (0.8-2.0) Lab results reviewed: Yes Imaging Imaging results reviewed: Yes Impressions Examination: Single AP view of the chest. COMPARISON: Portable chest 12/29/2019 and 09/10/2017 INDICATION: Covid Positive, frequent falls, AMS IMPRESSION: 1. Lines and Tubes: None 2. Slight interval worsening of bilateral multifocal patchy airspace opacities bilaterally likely reflecting multifocal pneumonia (including viral disease). 3. Cardiomediastinal silhouette is normal. Pulmonary vasculature is normal. 4. No acute bony abnormalities. Signed by: Dr. Bairon Brandt M.D. on 01/13/2020 11:16 PM EXAMINATION: Head CT without contrast. HISTORY:Altered mental status, fall. COMPARISON:CT brain from 09/10/2017. TECHNIQUE: Multidetector axial images were obtained from the foramen magnum to the vertex without contrast. The images were reconstructed using brain and bone algorithms. Thin section brain images were reformatted into coronal and sagittal planes. Dose modulation, iterative reconstruction, and/or weight based adjustment of the mA/kV was utilized to reduce the radiation dose to as low as reasonably achievable. Intravenous contrast: None IMAGE QUALITY: Acceptable. FINDINGS: Skull/scalp: No lytic or blastic. lesions. No surgical changes. Parenchyma: Nonspecific few, scattered supratentorial white matter hypodensity are likely related to small vessel ischemic changes. No acute hemorrhage, mass or acute major vascular territorial infarct. Arteries: No density suggestive of thrombosis. Atherosclerotic calcification in bilateral carotid siphon. Dural sinuses: No abnormal density suggestive of thrombosis. Ventricles: No hydrocephalus or displacement. Extra-axial spaces: No abnormal density. Brain volume: Normal for age. Craniocervical junction: No mass, Chiari malformation, or basilar invagination. Sella: No mass. Paranasal/mastoid sinuses: Imaged portions unremarkable. IMPRESSION: No acute intracranial abnormality. No change since CT head from 09/10/2017. Chronic findings: Mild supratentorial white matter microvascular ischemic changes. Signed by: Dr. Mariam Linares M.D. on 01/13/2020 11:14 PM Procedures 12 Lead ECG Interpretation ECG Interpretation : ECG: ECG 1 Television Receiver Analyzer: Interpreted by ED physician Date: Jan 14, 2020 Time: 02:34 Rhythm: sinus rhythm Rate: normal BPM: 77 QRS axis: normal ST segments normal: Yes T waves normal: Yes Other findings: no other findings Clinical Impression: normal ECG Assessment & Plan Medical Decision Making MDM PT WITH C/O LEFT ARM AND BILATERAL LEG TINGLING FOR 4 DAYS, PT ALSO APPEARS TO BE AGITATED, FAMILY STATES THAT HAS BEEN GOING ON FOR PAST 4 TO 5 DAYS WELL. CBC, CMP, EKG, CXR, CARDIAC ENZYMES, CT BRAIN ORDERED TO EVAL FOR MYOCARDIAL INFARCTION, ELECTROLYTE ABNORMALITY, INTRACRANIAL ABNORMALITY, STATUS OF HER VIRAL PNEUMONIA PT DISCHARGED HOME WITH INSTRUCTIONS TO FOLLOW UP WITH PCP AND GET REFERRAL TO NEUROLOGY Assessment & Plan Final Impression: (1) Depart Disposition: HOME, SELF-CARE Last Vital Signs Date Time Temp Pulse Resp B/P (MAP) Pulse Ox O2 Delivery O2 Flow Rate FiO2 01/13/20 21:30 96.7 97 20 150/85 93 Home Meds Active Scripts Cefuroxime Axetil (CEFUROXIME) 500 Mg Tablet, 500 MG PO BID for 14 Days, #28 TAB Prov:MONET MICHAEL NP 12/31/19 Diphenoxylate Hcl/Atropine (DIPHENOXYLATE-ATROPINE TABLET) 1 Each Tablet, 1 EA P O TID PRN for DIARRHEA for 30 Days, #30 TAB 0 Refills Prov:MONET MICHAEL NP 12/31/19 Acetaminophen (ACETAMINOPHEN) 325 Mg Tablet, 650 MG PO Q6H PRN for Mild Pain (1- 3) or Fever>100.8 for 30 Days, #30 TAB 0 Refills Prov:MONET MICHAEL NP 12/31/19 BLANCHE CRUZ MD Jan 14, 2020 01:20
[2020-01-14 02:33] LABS: COLOR,URINE YELLOW (YELLOW)
[2020-01-14 02:34] LABS: BACTERIA,URINE FEW /HPF; BILIRUBIN,URINE NEGATIVE (NEGATIVE); CLARITY,URINE CLOUDY (CLEAR); EPITHELIAL CELLS,URINE FEW /LPF; KETONES,URINE NEGATIVE (NEGATIVE); LEUKOCYTE ESTERASE ,URINE NEGATIVE (NEGATIVE); NITRITE,URINE NEGATIVE (NEGATIVE); PROTEIN,URINE DIPSTICK NEGATIVE (NEGATIVE); RBC,URINE 0-5 /HPF (0-5); URINE UROBILINOGEN 0.2 mg/dL (0.2 - 1)
[2020-01-14 02:46] LABS: MUCUS,URINE MANY (RARE)
[2020-01-14 03:02] VITALS: BP 149/67
== END 2020-01-14 03:13 | disposition home or self-care (01) ==
LOC: ER 19:33
DX: R20.0 Anesthesia of skin (principal); F05 Delirium due to known physiological condition; I10 Essential (primary) hypertension; E11.9 Type 2 diabetes mellitus without complications
CPT/HCPCS: 36415; 70450; 71045; 80053; 81001; 82550; 82553; 84484; 85025; 93005; 99284

== ENCOUNTER 2020-10-10 12:28 | Emergency (ER) | payer MEDICARE ==
[~2020-10-10] VITALS: Ht 152.4 cm; Wt 57.2 kg
[2020-10-10] MEDS ORDERED: KETOROLAC TROMETHAMINE 30 MG/ML VIAL IM STA (12:54)
[2020-10-10 15:10] VITALS: BP 149/70
== END 2020-10-10 15:12 | disposition home or self-care (01) ==
LOC: ER 12:48
DX: M25.512 Pain in left shoulder (principal); S00.83XA Contusion of other part of head, initial encounter; M54.2 Cervicalgia; W17.89XA Other fall from one level to another, initial encounter; I10 Essential (primary) hypertension; E11.9 Type 2 diabetes mellitus without complications; Z86.73 Personal history of transient ischemic attack (TIA), and cerebral infarction without residual deficits
CPT/HCPCS: 70450; 71045; 72125; 72170; 73030; 73080; 99283; J1885